=== PATIENT | female | born 1990 | race African-American/Black ===

== ENCOUNTER 2017-11-05 15:37 | Emergency (ER) | payer BC, OTHER ==
[2017-11-05 15:59] VITALS: RESP 18; TEMP 98.3
[2017-11-05 16:19] LABS: Basophils # (A) 0.1 k/uL (0-0.2); Basophils % (A) 0 %; Eosinophils # (A) 0.9 k/uL (0-0.7); Eosinophils % (A) 8 %; HGB 12.9 gm/dL (11.4-16.0); Lymphocytes # (A) 2.4 k/uL (1.0-4.8); Lymphocytes % (A) 21 %; MCHC 31.5 g/dL (31.0-37.0); MCV 85.6 fL (80.0-100.0); Mean Platelet Volume 6.7; Monocytes # (A) 0.6 k/uL (0-1.0); Monocytes % (A) 5 %; Neutrophils # (A) 7.6 k/uL (1.3-7.7); Neutrophils % (A) 65 %; Platelet Count 251 k/uL (150-450); RBC 4.78 m/uL (3.80-5.40); RDW 12.9 % (11.5-15.5); WBC 11.7 k/uL (3.8-10.6)
[2017-11-05 16:24] LABS: Appearance,Urine Clear (Clear); Bilirubin,Urine Negative (Negative); Blood,Urine Negative (Negative); Color,Urine Yellow; Glucose,Urine (UA) Negative (Negative); Ketones,Urine 1+ (Negative); Leukocyte Esterase,Urine Negative (Negative); Nitrite,Urine Negative (Negative); Protein,Urine Trace (Negative); Specific Gravity,Urine 1.023 (1.001-1.035); Urobilinogen,Urine <2.0 mg/dL (<2.0)
[2017-11-05 16:32] LABS: ALT 28 U/L (9-52); AST 19 U/L (14-36); Albumin 4.5 g/dL (3.5-5.0); Alkaline Phosphatase 58 U/L (38-126); Amylase 90 U/L (30-110); Anion Gap 13 mmol/L; Blood Urea Nitrogen 13 mg/dL (7-17); Calcium 10.3 mg/dL (8.4-10.2); Carbon Dioxide 23 mmol/L (22-30); Chloride 104 mmol/L (98-107); Glucose 93 mg/dL (74-99); Lipase 197 U/L (23-300); Potassium 3.8 mmol/L (3.5-5.1); Sodium 140 mmol/L (137-145); Total Bilirubin 0.4 mg/dL (0.2-1.3); Total Protein 7.8 g/dL (6.3-8.2)
--- NOTE | 2017-11-05 16:51 | ED ---
General Adult HPI - General Chief complaint: Abdominal Pain Stated complaint: Abd pain Time Seen by Provider: 11/05/17 16:41 Source: patient, RN notes reviewed Mode of arrival: ambulatory Limitations: no limitations - History of Present Illness Initial comments: 27 yo female presents to the ER with cc of pelvic pain and cramping and . She states she is about 5-6 weeks . Last menstrual cycle was September 21. She states she's been having some lower cramping in the abdomen. No nausea no fever no chills. She is a . She states that she has not had any fever chills. No changes in urination. She was concerned due to her continued cramping so she thought that she should be seen. She denies any vaginal bleeding. She states she has discharge but it is much like her typical discharged with no changes to that. Patient denies any recent fever, chills, shortness of breath, chest pain, back pain, nausea vomiting, numbness or tingling, dysuria or hematuria, constipation or diarrhea, headaches or visual changes, or any other current symptoms. - Related Data Home Medications Medication Instructions Recorded Confirmed Pnv No.95/Ferrous Fum/Folic AC 1 tab PO DAILY 11/05/17 11/05/17 [ Multivitamin Tablet] Allergies Allergy/AdvReac Type Severity Reaction Status Date / Time No Known Allergies Allergy Verified 11/05/17 16:30 Review of Systems ROS Statement: Those systems with pertinent positive or pertinent negative responses have been documented in the HPI. ROS Other: All systems not noted in ROS Statement are negative. Past Medical History Past Medical History: No Reported History History of Any Multi-Drug Resistant Organisms: None Reported Past Surgical History: Orthopedic Surgery Additional Past Surgical History / Comment(s): D&C Past Psychological History: Anxiety, Bipolar, Depression Smoking Status: Former smoker Past Alcohol Use History: None Reported Past Drug Use History: None Reported General Exam - General Exam Comments Initial Comments: General: The patient is awake and alert, in no distress, and does not appear acutely ill. Eye: Pupils are equal, round and reactive to light, extra-ocular movements are intact; there is normal conjunctiva bilaterally. No signs of icterus. Ears, nose, mouth and throat: There are moist mucous membranes. Neck: The neck is supple, there is no tenderness. Cardiovascular: There is a regular rate and rhythm. No murmur, rub or gallop is appreciated. Respiratory: Lungs are clear to auscultation, respirations are non-labored, breath sounds are equal. No wheezes, stridor, rales, or rhonchi. Gastrointestinal: Soft, non-distended, non-tender abdomen without masses or organomegaly noted. There is no rebound or guarding present. No CVA tenderness. Bowel sounds are unremarkable. Back: There is no tenderness to palpation in the midline. There is no obvious deformity. No rashes noted. Musculoskeletal: Normal ROM, no tenderness, There is no pedal edema. There is no calf tenderness or swelling. Sensation intact. Pulses equal bilaterally 2+. Neurological: CN II-XII intact, There are no obvious motor or sensory deficits. Coordination appears grossly intact. Speech is normal. Skin: Skin is warm and dry and no rashes or lesions are noted. Psychiatric: Cooperative, appropriate mood & affect, normal judgment. Limitations: no limitations Course Vital Signs 11/05/17 15:57 Temperature 98.3 F Pulse Rate 74 Respiratory 18 Rate Blood Pressure 128/78 O2 Sat by Pulse 100 Oximetry Medical Decision Making - Medical Decision Making 27-year-old female presents to the emergency department with a chief complaint of pelvic cramping and . This time ultrasound was reviewed that does show a single IUP. This and the heart rate is low. We discussed this could be early . We did discuss follow-up with the family care doctor. We did discuss also follow-up with [facility]. We discussed return parameters all questions. Patient stated he understood and he is in agreement this plan. All questions have been answered. He will be discharged home. - Lab Data Result diagrams: 11/05/17 16:05 11/05/17 16:05 Lab Results 11/05/17 11/05/17 11/05/17 Range/Units 16:05 16:05 16:05 WBC 11.7 H (3.8-10.6) k/uL RBC 4.78 (3.80-5.40) m/uL Hgb 12.9 (11.4-16.0) gm/dL Hct 41.0 (34.0-46.0) % MCV 85.6 (80.0-100.0) fL MCH 27.0 (25.0-35.0) pg MCHC 31.5 (31.0-37.0) g/dL RDW 12.9 (11.5-15.5) % Plt Count 251 (150-450) k/uL Neutrophils % 65 % Lymphocytes % 21 % Monocytes % 5 % Eosinophils % 8 % Basophils % 0 % Neutrophils # 7.6 (1.3-7.7) k/uL Lymphocytes # 2.4 (1.0-4.8) k/uL Monocytes # 0.6 (0-1.0) k/uL Eosinophils # 0.9 H (0-0.7) k/uL Basophils # 0.1 (0-0.2) k/uL Sodium 140 (137-145) mmol/L Potassium 3.8 (3.5-5.1) mmol/L Chloride 104 (98-107) mmol/L Carbon Dioxide 23 (22-30) mmol/L Anion Gap 13 mmol/L BUN 13 (7-17) mg/dL Creatinine 0.70 (0.52-1.04) mg/dL Est GFR (MDRD) Af Amer >60 (>60 ml/min/1.73 sqM) Est GFR (MDRD) Non-Af >60 (>60 ml/min/1.73 sqM) Glucose 93 (74-99) mg/dL Calcium 10.3 H (8.4-10.2) mg/dL Total Bilirubin 0.4 (0.2-1.3) mg/dL AST 19 (14-36) U/L ALT 28 (9-52) U/L Alkaline Phosphatase 58 (38-126) U/L Total Protein 7.8 (6.3-8.2) g/dL Albumin 4.5 (3.5-5.0) g/dL Amylase 90 (30-110) U/L Lipase 197 (23-300) U/L HCG, Quant 19624.2 mIU/mL Urine Color Yellow Urine Appearance Clear (Clear) Urine pH 6.0 (5.0-8.0) Ur Specific [place] 1.023 (1.001-1.035) Urine Protein Trace H (Negative) Urine Glucose (UA) Negative (Negative) Urine Ketones 1+ H (Negative) Urine Blood Negative (Negative) Urine Nitrite Negative (Negative) Urine Bilirubin Negative (Negative) Urine Urobilinogen <2.0 (<2.0) mg/dL Ur Leukocyte Esterase Negative (Negative) - Radiology Data Radiology results: report reviewed, image reviewed Disposition Clinical Impression: Pelvic pain affecting Disposition: HOME SELF-CARE Condition: Stable Instructions: Abdominal Pain in (ED) Additional Instructions: Please use medication as discussed. Please follow up with family doctor if symptoms have not improved over the next two days. Please return to the emergency room if your symptoms increase or worsen or for any other concerns. Referrals: Korey Brown MD [Primary Care Provider] - 1-2 days Bryan Oropeza MD [STAFF PHYSICIAN] - 1-2 days Time of Disposition: 17:43
[2017-11-05 17:17] LABS: HCG,Quantitative Serum 16240.2 mIU/mL
--- NOTE | 2017-11-05 17:39 | US ---
EXAMINATION TYPE: US OB <= 14 wk fetus DATE OF EXAM: 11/05/2017 COMPARISON: NONE CLINICAL HISTORY: Pain. Pt states cramping, denies bleeding EXAM PERFORMED: Transabdominal (TA) EXAM MEASUREMENTS: GESTATIONAL AGE / DATING Physician Established: Not yet established Dates by LMP: (6 weeks/3 days) EDC: 06/28/2018 Dates by First Scan: No prior Dates by Current Scan for: (6 weeks/0 days) EDC: 07/01/2018 MATERNAL ANATOMY Uterus: 8.6 x 4.6 x 5.6 Right Ovary: 3.8 x 3.8 x 3.5 cm Left Ovary: 3.3 x 3.0 x 2.6 cm Post CDS / Adnexa: wnl Presence of free fluid: No Presence of corpus luteal cyst: Right Ovary= 2.4 x 2.4 x 2.1 cm Presence of subchorionic bleed: No GESTATION / SURVEY CRL: 0.3 cm (6 weeks/0 days) MSD: wnl Yolk Sac (normal less than 6mm): 3mm Heart Rate: 92 bpm Rhythm: Slow rate, however this could be seen at very early gestation IUP: Viable IUP Date of LMP: 09/21/2017 IMPRESSION: SINGLE, VIABLE IUP WITH RELATIVELY LOW HEART RATE AT THIS TIME.
[2017-11-05 18:08] VITALS: BP 151/93; PULSE 77
== END 2017-11-05 18:07 | disposition home or self-care (01) ==
LOC: EC 15:37
DX: O26.891 Other specified pregnancy related conditions, first trimester (principal); R10.2 Pelvic and perineal pain; Z87.891 Personal history of nicotine dependence; Z79.899 Other long term (current) drug therapy; Z3A.01 Less than 8 weeks gestation of pregnancy
CPT/HCPCS: 36415; 76801; 80053; 81003; 82150; 83690; 84702; 85025; 99284

== ENCOUNTER 2018-04-19 17:38 | Outpatient (CLI) | payer BC ==
[2018-04-19 18:13] VITALS: BP 132/79; PULSE 91; RESP 16; TEMP 97.6
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
== END 2018-04-19 19:50 | disposition home or self-care (01) ==
LOC: FBPOP 17:38
PROVIDERS: ATTEND Obstetrics & Gynecology
DX: O9A.213 Injury, poisoning and certain other consequences of external causes complicating pregnancy, third trimester (principal); S39.81XA Other specified injuries of abdomen, initial encounter; Z3A.30 30 weeks gestation of pregnancy
CPT/HCPCS: 59025; 99213

== ENCOUNTER 2018-05-17 14:14 | Emergency (ER) | payer BC, OTHER ==
[2018-05-17] MEDS ORDERED: SODIUM CHLORIDE 0.9% 1,000 ML IV STA (14:47)
[2018-05-17 15:08] LABS: Basophils % (A) 0 %; Eosinophils # (A) 0.5 k/uL (0-0.7); Eosinophils % (A) 4 %; HGB 11.9 gm/dL (11.4-16.0); Lymphocytes # (A) 1.8 k/uL (1.0-4.8); Lymphocytes % (A) 13 %; MCH 26.6 pg (25.0-35.0); MCHC 32.3 g/dL (31.0-37.0); MCV 82.5 fL (80.0-100.0); Mean Platelet Volume 7.5; Monocytes # (A) 0.6 k/uL (0-1.0); Monocytes % (A) 4 %; Neutrophils # (A) 10.6 k/uL (1.3-7.7); Neutrophils % (A) 77 %; Platelet Count 228 k/uL (150-450); RBC 4.48 m/uL (3.80-5.40); RDW 13.8 % (11.5-15.5); WBC 13.7 k/uL (3.8-10.6)
--- NOTE | 2018-05-17 15:17 | ED ---
General Adult HPI - General Chief complaint: Nausea/Vomiting/Diarrhea Stated complaint: vomiting Time Seen by Provider: 05/17/18 14:41 Source: patient, RN notes reviewed Mode of arrival: ambulatory Limitations: no limitations - History of Present Illness Initial comments: Patient's 28-year-old female presented to the emergency room today with chief complaint of nausea vomiting that started this morning. Patient states that she 's approximately 34 weeks by a stop.. Patient states that last episode of vomiting was at 11 AM approximate 4 hours ago. Patient states that she did doctor or OB was advised coming here to the emergency room. Patient denies any vaginal bleeding or discharge. Denies any specific abdominal pain. Does admit that she had some cramping with the vomiting earlier. Patient denies any recent fever, chills, shortness of breath, chest pain, back pain, numbness or tingling, headaches or visual changes, or any other complaints. - Related Data Home Medications Medication Instructions Recorded Confirmed Pnv No.95/Ferrous Fum/Folic AC 1 tab PO DAILY 11/05/17 05/17/18 [ Multivitamin Tablet] Cholecalciferol [Vitamin D3] 1,000 unit PO DAILY 05/17/18 05/17/18 Omeprazole 20 mg PO DAILY 05/17/18 05/17/18 Allergies Allergy/AdvReac Type Severity Reaction Status Date / Time No Known Allergies Allergy Verified 05/17/18 14:51 Review of Systems ROS Statement: Those systems with pertinent positive or pertinent negative responses have been documented in the HPI. ROS Other: All systems not noted in ROS Statement are negative. Past Medical History Past Medical History: No Reported History History of Any Multi-Drug Resistant Organisms: None Reported Past Surgical History: Orthopedic Surgery Additional Past Surgical History / Comment(s): D&C Past Psychological History: Anxiety, Bipolar, Depression Smoking Status: Never smoker Past Alcohol Use History: None Reported Past Drug Use History: Marijuana General Exam - General Exam Comments Initial Comments: General: The patient is awake and alert, in no distress, and does not appear acutely ill. Eye: Pupils are equal, round and reactive to light. Extra-ocular movements are intact. No nystagmus. There is normal conjunctiva bilaterally. No signs of icterus. Ears, nose, mouth and throat: There are moist mucous membranes and no oral lesions. Neck: The neck is supple, there is no tenderness or JVD. Cardiovascular: There is a regular rate and rhythm. No murmur, rub or gallop is appreciated. Respiratory: Lungs are clear to auscultation, respirations are non-labored, breath sounds are equal. No wheezes, stridor, rales, or rhonchi. Gastrointestinal: Soft, non-distended, non-tender abdomen without masses or organomegaly noted. There is no rebound or guarding present. No CVA tenderness. Musculoskeletal: Normal ROM, no tenderness. Sensation intact. Strength 5/5. Pulses equal bilaterally 2+. Neurological: A&O x 3. CN II-XII intact, There are no obvious motor or sensory deficits. Coordination appears grossly intact. Speech is normal. Skin: Skin is warm and dry and no rashes or lesions are noted. Psychiatric: Cooperative, appropriate mood & affect, normal judgment. Limitations: no limitations Course Vital Signs 05/17/18 05/17/18 14:19 16:10 Temperature 98.1 F Pulse Rate 85 84 Respiratory 20 18 Rate Blood Pressure 129/95 132/72 O2 Sat by Pulse 100 100 Oximetry Medical Decision Making - Medical Decision Making Case discussed in detail with attending physician Dr. Wilkinson. Patient reexamined at this time shows no signs of distress resting comfortably. Patient will be discharged and sent to mostly be for further evaluation. Patient feeling well at this time. - Lab Data Result diagrams: 05/17/18 14:58 05/17/18 14:58 Lab Results 05/17/18 05/17/18 05/17/18 Range/Units 14:58 14:58 14:58 WBC 13.7 H (3.8-10.6) k/uL RBC 4.48 (3.80-5.40) m/uL Hgb 11.9 (11.4-16.0) gm/dL Hct 37.0 (34.0-46.0) % MCV 82.5 (80.0-100.0) fL MCH 26.6 (25.0-35.0) pg MCHC 32.3 (31.0-37.0) g/dL RDW 13.8 (11.5-15.5) % Plt Count 228 (150-450) k/uL Neutrophils % 77 % Lymphocytes % 13 % Monocytes % 4 % Eosinophils % 4 % Basophils % 0 % Neutrophils # 10.6 H (1.3-7.7) k/uL Lymphocytes # 1.8 (1.0-4.8) k/uL Monocytes # 0.6 (0-1.0) k/uL Eosinophils # 0.5 (0-0.7) k/uL Basophils # 0.0 (0-0.2) k/uL Sodium 136 L (137-145) mmol/L Potassium 4.2 (3.5-5.1) mmol/L Chloride 109 H (98-107) mmol/L Carbon Dioxide 18 L (22-30) mmol/L Anion Gap 9 mmol/L BUN 8 (7-17) mg/dL Creatinine 0.52 (0.52-1.04) mg/dL Est GFR (CKD-EPI)AfAm >90 (>60 ml/min/1.73 sqM) Est GFR (CKD-EPI)NonAf >90 (>60 ml/min/1.73 sqM) Glucose 79 (74-99) mg/dL Calcium 9.8 (8.4-10.2) mg/dL Total Bilirubin 0.5 (0.2-1.3) mg/dL AST 21 (14-36) U/L ALT 27 (9-52) U/L Alkaline Phosphatase 139 H (38-126) U/L Total Protein 6.7 (6.3-8.2) g/dL Albumin 3.6 (3.5-5.0) g/dL Urine Color Yellow Urine Appearance Clear (Clear) Urine pH 6.5 (5.0-8.0) Ur Specific [place] 1.023 (1.001-1.035) Urine Protein 1+ H (Negative) Urine Glucose (UA) Negative (Negative) Urine Ketones 4+ H (Negative) Urine Blood Negative (Negative) Urine Nitrite Negative (Negative) Urine Bilirubin Negative (Negative) Urine Urobilinogen <2.0 (<2.0) mg/dL Ur Leukocyte Esterase Negative (Negative) Urine WBC 1 (0-5) /hpf Ur Squamous Epith Cells 2 (0-4) /hpf Hyaline Casts 1 (0-2) /lpf Urine Mucus Moderate H (None) /hpf Disposition Clinical Impression: Nausea/vomiting in Disposition: HOME SELF-CARE Condition: Good Instructions: Acute Nausea and Vomiting (ED) Additional Instructions: Please follow-up with [facility] in the next 1-2 days. Please return to the emergency room for any other concerns. Is patient prescribed a controlled substance at d/c from ED?: No Referrals: Korey Brown MD [Primary Care Provider] - 1-2 days Estela Wang DO [Doctor of Osteopathic Medicine] - 1-2 days Time of Disposition: 16:44
[2018-05-17 15:19] LABS: ALT 27 U/L (9-52); AST 21 U/L (14-36); Albumin 3.6 g/dL (3.5-5.0); Alkaline Phosphatase 139 U/L (38-126); Anion Gap 9 mmol/L; Blood Urea Nitrogen 8 mg/dL (7-17); Calcium 9.8 mg/dL (8.4-10.2); Carbon Dioxide 18 mmol/L (22-30); Chloride 109 mmol/L (98-107); Glucose 79 mg/dL (74-99); Potassium 4.2 mmol/L (3.5-5.1); Sodium 136 mmol/L (137-145); Total Bilirubin 0.5 mg/dL (0.2-1.3); Total Protein 6.7 g/dL (6.3-8.2)
[2018-05-17 15:21] LABS: Appearance,Urine Clear (Clear); Bilirubin,Urine Negative (Negative); Blood,Urine Negative (Negative); Color,Urine Yellow; Glucose,Urine (UA) Negative (Negative); Hyaline Casts,Urine 1 /lpf (0-2); Ketones,Urine 4+ (Negative); Leukocyte Esterase,Urine Negative (Negative); Mucus,Urine Moderate /hpf; Nitrite,Urine Negative (Negative); PH, Urine 6.5 (5.0-8.0); Protein,Urine 1+ (Negative); Specific Gravity,Urine 1.023 (1.001-1.035); Squamous Epithelial Cell,Urine 2 /hpf (0-4); Urobilinogen,Urine <2.0 mg/dL (<2.0)
[2018-05-17] MEDS ORDERED: METOCLOPRAMIDE 5 MG/ML 2 ML VIAL IVP STA (15:56)
[2018-05-17] MEDS ORDERED: SODIUM CHLORIDE 0.9% 500 ML IV STA (15:57)
[2018-05-17 16:13] VITALS: PULSE 84; RESP 18
[2018-05-17 17:09] VITALS: BP 117/67; TEMP 98
== END 2018-05-17 17:09 | disposition home or self-care (01) ==
LOC: EC 14:14
DX: O21.2 Late vomiting of pregnancy (principal); Z3A.34 34 weeks gestation of pregnancy; Z79.899 Other long term (current) drug therapy
CPT/HCPCS: 99284; 96374; 96361; 36415; 80053; 85025; 81001; J2765

== ENCOUNTER 2018-06-28 08:53 | Inpatient (IN) | payer BC, OTHER ==
[2018-06-29] MEDS ORDERED: CARBOPROST TROMETHAMINE 250 MCG/ML 1 ML AMP IM PRN (06:26)
[2018-06-29] MEDS ORDERED: AMPICILLIN 2,000 MG in SODIUM CHLORIDE 0.9% 100 ML IVPB STA (06:26)
[2018-06-29] MEDS ORDERED: METHYLERGONOVINE 0.2 MG/ML 1 ML AMP IM PRN (06:26)
[2018-06-29] MEDS ORDERED: OXYTOCIN 10 UNIT/ML 1 ML VIAL IM PRN (06:26)
[2018-06-29] MEDS ORDERED: LIDOCAINE 0.5% (PF) 5 MG/ML (50 ML SDV) SQ PRN (06:26)
[2018-06-29] MEDS ORDERED: TERBUTALINE 1 MG/ML VIAL SQ PRN (06:26)
[2018-06-29] MEDS ORDERED: OXYTOCIN 20 UNITS/1000 ML NS 1,000 ML IV SCH ×2 (06:30→20:15)
[2018-06-29] MEDS: LACTATED RINGERS 1,000 ML IV SCH ×3 (06:39→23:59)
[2018-06-29 06:40] LABS: Basophils % (A) 0 %; Eosinophils # (A) 0.6 k/uL (0-0.7); Eosinophils % (A) 6 %; HCT 33.5 % (34.0-46.0); HGB 10.8 gm/dL (11.4-16.0); Hypochromasia Slight; Lymphocytes # (A) 1.9 k/uL (1.0-4.8); Lymphocytes % (A) 20 %; MCH 25.9 pg (25.0-35.0); MCHC 32.2 g/dL (31.0-37.0); MCV 80.5 fL (80.0-100.0); Mean Platelet Volume 8.3; Monocytes # (A) 0.6 k/uL (0-1.0); Monocytes % (A) 7 %; Neutrophils # (A) 6.4 k/uL (1.3-7.7); Neutrophils % (A) 65 %; Platelet Count 238 k/uL (150-450); RBC 4.15 m/uL (3.80-5.40); RDW 14.9 % (11.5-15.5); WBC 9.9 k/uL (3.8-10.6)
[2018-06-29] MEDS ORDERED: BUTORPHANOL 1 MG/ML 1 ML VIAL IV PRN (09:09)
[2018-06-29 09:46] VITALS: BMI 34.9
[2018-06-29] MEDS ORDERED: LABETALOL 5 MG/ML VIAL MDV IVP STA (09:56)
[2018-06-29 10:40] LABS: ALT 22 U/L (9-52); AST 23 U/L (14-36); Blood Urea Nitrogen 9 mg/dL (7-17); LDH 482 U/L (313-618); Uric Acid 4.1 mg/dL (3.7-7.4)
[2018-06-29] MEDS ORDERED: fentaNYL (PF) 50 MCG/ML 5 ML AMP ONE (10:55)
[2018-06-29] MEDS ORDERED: SODIUM CHLORIDE 0.9% 100 ML BAG ONE (10:55)
[2018-06-29] MEDS ORDERED: ROPIVACAINE 5MG/ML 20ML VIAL ONE (10:55)
[2018-06-29] MEDS: AMPICILLIN 1,000 MG in SODIUM CHLORIDE 0.9% 50 ML IVPB SCH ×3 (11:56→23:53)
[2018-06-29] MEDS ORDERED: CITRIC ACID-SODIUM CITRATE 15 ML CUP PO ONE (17:57)
[2018-06-29] MEDS ORDERED: ceFAZolin IN SWFI 2 GM/20 ML SYRINGE IVP ONE (17:57)
[2018-06-29] MEDS ORDERED: ONDANSETRON 4 MG/2 ML VIAL IM STA (18:37)
[2018-06-29] MEDS ORDERED: ONDANSETRON 4 MG/2 ML VIAL IVP STA (18:57)
[2018-06-29] MEDS ORDERED: PHENYLEPHRINE-0.9% NACL SYG 1 MG/10 ML SYRINGE ONE (19:23)
[2018-06-29] MEDS ORDERED: ONDANSETRON 4 MG/2 ML VIAL ONE (19:23)
[2018-06-29] MEDS ORDERED: OXYTOCIN 10 UNIT/ML 1 ML VIAL ONE (19:23)
[2018-06-29] MEDS ORDERED: DEXAMETHASONE SOD PHOS (MDV) 100 MG/10 ML VIAL ONE (19:23)
--- NOTE | 2018-06-29 20:09 | P.HPOB ---
History of Present Illness H&P Date: 06/29/18 Chief Complaint: IUP @ 40 1/7 weeks GBS pos This is a 28-year-old 1 para 0 at 40 and one sevenths weeks that presents for induction of labor. Patient has had an uncomplicated thus far and has been receiving routine care with myself. She notes good movement, an occasional contraction no vaginal bleeding or loss of fluid. On blood work she had a blood type Bpos, Rubella immune, RPR NR, HepBsag neg, GBS pos. She does admit to THC use and had a positive drug screen. Review of Systems Constitutional: Reports fatigue, Denies chills, Denies fever Ears, nose, mouth and throat: Denies headache Cardiovascular: Reports leg edema Respiratory: Denies cough, Denies dyspnea Gastrointestinal: Denies constipation, Denies diarrhea, Denies nausea, Denies vomiting Genitourinary: Reports Past Medical History Past Medical History: No Reported History History of Any Multi-Drug Resistant Organisms: None Reported Past Surgical History: Orthopedic Surgery Additional Past Surgical History / Comment(s): D&C Past Anesthesia/Blood Transfusion Reactions: No Reported Reaction Past Psychological History: Anxiety, Bipolar, Depression Smoking Status: Never smoker Past Alcohol Use History: None Reported Past Drug Use History: Marijuana - Past Family History Father Family Medical History: No Reported History Medications and Allergies Home Medications Medication Instructions Recorded Confirmed Type Pnv No.95/Ferrous Fum/Folic AC 1 tab PO DAILY 11/05/17 06/29/18 History [ Multivitamin Tablet] Cholecalciferol [Vitamin D3] 1,000 unit PO DAILY 05/17/18 06/29/18 History Allergies Allergy/AdvReac Type Severity Reaction Status Date / Time No Known Allergies Allergy Verified 05/17/18 14:51 Exam Osteopathic Statement: *. No significant issues noted on an osteopathic structural exam other than those noted in the History and Physical/Consult. Vital Signs Temp Pulse Resp BP 06/29/18 06:23 97.3 F L 96 16 137/93 Intake and Output 06/29/18 06/29/18 06/29/18 06:59 14:59 22:59 Intake Total 250 Balance 250 Intake: Oral 250 Other: Weight 95.254 kg - OBG Physical Exam Abdomen: Gravid Cervix: 4/80/-2 amniotomy performed and clear fluid was obtained. Uterus: enlarged (Appropriate for gestational age) Anus/Rectum: normal perianal skin Results Result Diagrams: 06/29/18 06:30 06/29/18 09:35 Abnormal Lab Results - Last 24 Hours (Table) 06/29/18 Range/Units 06:30 Hgb 10.8 L (11.4-16.0) gm/dL Hct 33.5 L (34.0-46.0) % Assessment and Plan (1) Term Current Visit: Yes Status: Acute Code(s): Z34.80 - ENCOUNTER FOR SUPRVSN OF NORMAL , UNSP TRIMESTER SNOMED Code(s): 99055785 (2) Positive GBS test Current Visit: Yes Status: Acute Code(s): B95.1 - STREPTOCOCCUS, GROUP B, CAUSING DISEASES [facility] Code(s): 8656243220311 Plan: We'll admit for induction of labor with Pitocin. Epidural as requested per patient for analgesia. Anticipate spontaneous vaginal delivery
[2018-06-29] MEDS ORDERED: ACETAMINOPHEN TAB 325 MG TAB PO PRN (20:11)
[2018-06-29] MEDS ORDERED: diphenhydrAMINE 50 MG/ML 1 ML VIAL IVP PRN ×2 (20:11)
[2018-06-29] MEDS ORDERED: LANOLIN CREAM 5 GM TUBE TOPICAL PRN (20:11)
[2018-06-29] MEDS ORDERED: diphenhydrAMINE 50 MG CAP PO PRN (20:11)
[2018-06-29] MEDS ORDERED: METOCLOPRAMIDE 5 MG/ML 2 ML VIAL IVP PRN (20:11)
[2018-06-29] MEDS ORDERED: NALOXONE 0.4 MG/ML 1 ML VIAL IV PRN ×2 (20:11→22:13)
[2018-06-29] MEDS ORDERED: diphenhydrAMINE 25 MG CAP PO PRN (20:11)
[2018-06-29] MEDS ORDERED: ZOLPIDEM 5 MG TAB PO PRN (20:11)
[2018-06-29] MEDS ORDERED: ACETAMINOPHEN IV (For NPO) 1,000 MG in EMPTY BAG 1 BAG IVPB ONE (20:11)
[2018-06-29] MEDS ORDERED: ONDANSETRON 4 MG/2 ML VIAL IVP PRN (20:11)
--- NOTE | 2018-06-29 20:11 | P.OP ---
Date of Procedure: 06/29/18 Preoperative Diagnosis: IUP at 40 and one sevenths weeks, arrest of first stage of labor Postoperative Diagnosis: Same Procedure(s) Performed: Primary low transverse section Anesthesia: epidural Surgeon: Estela Wang Inspector Hairspring Truing #1: Rosemary Mckeon Estimated Blood Loss (ml): 200 IV fluids (ml): 1,000 Urine output (ml): 200 Pathology: other (Placenta) Condition: stable Disposition: PACU Indications for Procedure: Arrest of first stage of labor patient was admitted at 4 cm and many hours later was 6 cm with extensive Formation Operative Findings: Normal uterus tubes and ovaries were appreciated, infant in occiput transverse position. Description of Procedure: The patient was prepped and draped in the usual fashion after epidural anesthesia was found be adequate. A Pfannenstiel incision was made and extended of the abdominal cavity without difficulty. The bladder peritoneum was elevated and incised and reflected distally. A 2 cm incision was made in the transverse plane of the lower uterine segment to enter the uterus at which time clear fluid was noted. The incision was extended in both directions using the bandage scissors. The head was encountered within the field and delivered up and through the incision where the nose and mouth were thoroughly suctioned. Remainder of the was delivered onto the surgical field where the cord was doubly clamped, cut, and the infant was passed for resuscitative measures with weight 8-1and Apgars 8-9. A segment of cord was then doubly clamped, cut, and set aside should cord gases become necessary. The placenta was delivered manually, intact, and was grossly normal with a grossly normal three-vessel cord. The uterus was exteriorized and the interior cavity of the uterus swept of any remaining placental and membranous fragments with a laparotomy sponge. The margins of the incision were grasped with Agosto clamps and the incision closed in 2 layers. First layer was a running locking layer of 0vicryl from margin to margin followed by a second layer of imbricating 0 vicryl from margin to margin. Any small points of bleeding were then made hemostatic with the Bovie. Once hemostasis was achieved, the posterior cul-de-sac was suctioned with a guard and the uterine and ovarian findings are as noted above. The uterus was replaced within the abdominal cavity and the gutters swept of any remaining blood fluid or clot. The incision was again reexamined and hemostasis was noted to be excellent. Any small point of bleeding were made hemostatic with the Bovie. Once hemostasis was achieved the parietal peritoneum was loosely reapproximated. The layer of muscles were examined and made hemostatic with the Bovie. Attention was then turned to the fascia which was closed with 2 running stitches of 0 Vicryl proceeding from the lateral margins to the midpoint. The subcutaneous tissues were irrigated, made hemostatic with the Bovie. The skin was reapproximated with4-0 vicryl. Estimated blood loss for the case was approximately 200 mL. All sponge instrument and needle counts are correct. There were no complications. The patient tolerated the procedure well and proceeded to the recovery room in stable condition. Both mother and are resting comfortably in recovery.
[2018-06-29] MEDS ORDERED: IBUPROFEN IV 800 MG in SODIUM CHLORIDE 0.9% 250 ML IV ONE (20:13)
[2018-06-29] MEDS ORDERED: LABETALOL 200 MG TAB PO STA (22:09)
[2018-06-29] MEDS: HYDROmorphone PCA 5 MG/25 ML SYRINGE IV PRN (23:34)
[2018-06-30] MEDS: LACTATED RINGERS 1,000 ML IV SCH (05:15)
[2018-06-30 07:36] LABS: Basophils % (A) 0 %; Eosinophils % (A) 0 %; HCT 32.9 % (34.0-46.0); HGB 10.5 gm/dL (11.4-16.0); Hypochromasia Slight; Lymphocytes # (A) 0.8 k/uL (1.0-4.8); Lymphocytes % (A) 4 %; MCH 25.9 pg (25.0-35.0); MCV 80.9 fL (80.0-100.0); Mean Platelet Volume 8.7; Monocytes # (A) 0.8 k/uL (0-1.0); Monocytes % (A) 4 %; Neutrophils % (A) 91 %; Platelet Count 222 k/uL (150-450); RBC 4.07 m/uL (3.80-5.40); RDW 14.8 % (11.5-15.5); WBC 18.7 k/uL (3.8-10.6)
[2018-06-30] MEDS: HYDROmorphone PCA 5 MG/25 ML SYRINGE IV PRN (08:08)
--- NOTE | 2018-06-30 08:11 | P.PNOBGPC ---
Subjective - Subjective Principal diagnosis: Postop day 1 Interval history: Pain well controlled with ASSISTANT PROGRAM MANAGER device. Nausea has resolved. His 12 hours postop , has not actively ambulated yet. Patient reports: Reports pain well controlled : doing well Objective - Vital Signs Latest vital signs: Vital Signs Temp Pulse Resp BP Pulse Ox 06/30/18 04:00 97.9 F 71 16 138/77 06/30/18 00:00 98.8 F 94 16 149/83 06/29/18 22:15 97.3 F L 86 16 145/99 06/29/18 21:45 94 16 170/87 06/29/18 21:15 90 16 152/84 98 06/29/18 21:00 98.2 F 95 16 147/78 100 06/29/18 20:45 92 16 141/70 98 06/29/18 20:30 98.4 F 100 14 113/58 98 06/29/18 20:15 98.8 F 99 16 112/52 Intake and Output 06/29/18 06/30/18 06/30/18 22:59 06:59 14:59 Intake Total 370 800 Output Total 400 1400 Balance -30 -600 Intake: IV 800 Lactated Ringers 1,000 ml 800 @ 125 mls/hr IV .Q8H HELEN Rx#:[id number] Intake, IV Titration 250 Amount Lactated Ringers 1,000 ml 250 @ 125 mls/hr IV .Q8H HELEN Rx#:[id number] Oral 120 Output: Urine 400 1400 Uretheral (Gleason) 400 Other: # Voids 1 - Exam Extremities: Present: edema. Absent: tenderness Abdomen: Present: normal appearance, tenderness Incision: Present: dry, intact, dressed Uterus: Present: normal, firm - Labs Labs: Abnormal Lab Results - Last 24 Hours (Table) 06/30/18 Range/Units 07:01 WBC 18.7 H (3.8-10.6) k/uL Hgb 10.5 L (11.4-16.0) gm/dL Hct 32.9 L (34.0-46.0) % Neutrophils # 17.0 H (1.3-7.7) k/uL Lymphocytes # 0.8 L (1.0-4.8) k/uL Assessment and Plan (1) Positive GBS test Current Visit: Yes Status: Acute Code(s): B95.1 - STREPTOCOCCUS, GROUP B, CAUSING DISEASES CLASSD ELSR SNOMED Code(s): 3401966481826 (2) Term Current Visit: Yes Status: Acute Code(s): Z34.80 - ENCOUNTER FOR SUPRVSN OF NORMAL , UNSP TRIMESTER SNOMED Code(s): 64829136 (3) S/P section Narrative/Plan: Postop day one half. Continue ASSISTANT PROGRAM MANAGER device throughout the day then transitioned to oral pain medications. Advance to general diet. Current Visit: Yes Status: Acute Code(s): Z98.891 - HISTORY OF UTERINE SCAR FROM PREVIOUS SURGERY SNOMED Code(s): 191028238 (4) Failure to progress in first stage of labor Current Visit: Yes Status: Acute Code(s): RNQ3529 - SNOMED Code(s): 169647129 (5) Hypertension complicating Narrative/Plan: Required labetalol 200 mg by mouth 1 last night. Most recent blood pressure 130s over 70s. We will continue to monitor, may need oral antihypertensives in the period Current Visit: Yes Status: Acute Code(s): O16.9 - UNSPECIFIED MATERNAL HYPERTENSION, UNSPECIFIED TRIMESTER SNOMED Code(s): 77448672972254
[2018-06-30] MEDS: HYDROcodone/APAP 7.5-325MG 1 EACH TAB PO PRN ×2 (13:27→20:39)
[2018-06-30] MEDS: SENNOSIDES-DOCUSATE SODIUM 1 EACH TAB PO SCH ×2 (13:28→20:39)
[2018-06-30] MEDS: IBUPROFEN 600 MG TAB PO PRN ×2 (16:42→23:24)
[2018-07-01] MEDS: HYDROcodone/APAP 5-325MG 1 EACH TAB PO PRN ×2 (02:27→08:32)
[2018-07-01] MEDS: IBUPROFEN 600 MG TAB PO PRN ×2 (05:30→11:28)
[2018-07-01] MEDS: SENNOSIDES-DOCUSATE SODIUM 1 EACH TAB PO SCH (08:32)
[2018-07-01 08:44] VITALS: BP 135/76; PULSE 88; RESP 18; TEMP 98
[2018-07-01] MEDS: LACTATED RINGERS 1,000 ML IV SCH (09:43)
--- NOTE | 2018-07-01 10:06 | P.DS ---
Providers Date of admission: 06/29/18 06:10 Expected date of discharge: 07/01/18 Attending physician: Estela Wang Primary care physician: Korey Brown - Discharge Diagnosis(es) (1) Positive GBS test Current Visit: Yes Status: Acute (2) Term Current Visit: Yes Status: Acute (3) S/P section Current Visit: Yes Status: Acute (4) Failure to progress in first stage of labor Current Visit: Yes Status: Acute (5) Hypertension complicating Current Visit: Yes Status: Acute Hospital Course: This is a 28-year-old 1 now para 1 woman here was admitted for postdates induction of labor. She had arrest of descent and dilatation and therefore underwent primary low transverse section. She did have some hypertension during her labor requiring IV antihypertensives. She had a liveborn male infant weighing 8 pounds there was in the occiput transverse position. Please see the operative report for details. Patient's post course was unremarkable. She did receive labetalol 200 mg by mouth 1 for a single elevated blood pressure. On her blood pressures then were within normal limits the duration of her stay. Her postoperative course was otherwise unremarkable and she was discharged home on postoperative day #2 with routine instructions for care and follow-up. Procedures: Primary low transverse section Patient Condition at Discharge: Good Plan - Discharge Summary New Discharge Prescriptions: New HYDROcodone/APAP 7.5-325MG [Crozier 7.5-325] 1 each PO Q6H PRN #20 tab PRN Reason: Severe Pain Ibuprofen [Motrin] 600 mg PO Q6HR PRN #30 tab PRN Reason: Mild Pain Or Fever >= 100.5 Sennosides-Docusate Sodium [Senokot-S] 2 each PO BID@0800,2000 tab No Action Pnv No.95/Ferrous Fum/Folic AC [ Multivitamin Tablet] 1 tab PO DAILY Cholecalciferol [Vitamin D3] 1,000 unit PO DAILY Discharge Medication List Pnv No.95/Ferrous Fum/Folic AC [ Multivitamin Tablet] 1 tab PO DAILY [History] Cholecalciferol [Vitamin D3] 1,000 unit PO DAILY 05/17/18 [History] HYDROcodone/APAP 7.5-325MG [Crozier 7.5-325] 1 each PO Q6H PRN #20 tab 07/01/18 [ Rx] Ibuprofen [Motrin] 600 mg PO Q6HR PRN #30 tab 07/01/18 [Rx] Sennosides-Docusate Sodium [Senokot-S] 2 each PO BID@0800,2000 tab 07/01/18 [Rx ] Follow up Appointment(s)/Referral(s): Estela Wang DO [Doctor of Osteopathic Medicine] - 1 Week Activity/Diet/Wound Care/Special Instructions: Follow-up in 2 weeks after surgery in the office. Call the office with any concerning signs or symptoms including fever greater than 101, severe abdominal pain, heavy vaginal bleeding, signs of wound infection, increased swelling or redness of the lower extremities, signs of depression. No driving for 2 weeks after surgery. No heavy lifting or vigorous activity until reevaluated in the office. No intercourse for 6 weeks after delivery. Discharge Disposition: HOME SELF-CARE
== END 2018-07-01 14:20 | disposition home or self-care (01) | DRG 788 ==
LOC: 4FBP 06-29 06:10
PROVIDERS: ADMIT Obstetrics & Gynecology Obstetrics; ATTEND Obstetrics & Gynecology Obstetrics
PROC: 10907ZC Drainage of Amniotic Fluid, Therapeutic from Products of Conception, Via Natural or Artificial Opening (ICD-10-PCS; 2018-06-29)
PROC: 3E033VJ Introduction of Other Hormone into Peripheral Vein, Percutaneous Approach (ICD-10-PCS; 2018-06-29)
PROC: 10D00Z1 Extraction of Products of Conception, Low, Open Approach (ICD-10-PCS; principal; 2018-06-29 19:37)
DX: O62.0 Primary inadequate contractions (principal); O99.824 Streptococcus B carrier state complicating childbirth; O16.4 Unspecified maternal hypertension, complicating childbirth; Z37.0 Single live birth; Z3A.40 40 weeks gestation of pregnancy; Z86.59 Personal history of other mental and behavioral disorders
CPT/HCPCS: 82565; 83615; 84450; 84460; 84520; 84550; 85025; 86850; 86900; 86901

== ENCOUNTER 2019-01-08 09:25 | Emergency (ER) | payer BC, OTHER ==
[2019-01-08 09:31] VITALS: RESP 16; TEMP 98.2
[2019-01-08] MEDS ORDERED: KETOROLAC 30 MG/ML 1 ML VIAL IM STA (10:12)
--- NOTE | 2019-01-08 10:33 | ED ---
Fall HPI - General Chief Complaint: Fall Stated Complaint: Knee pain Time Seen by Provider: 01/08/19 09:36 Source: patient, RN notes reviewed, old records reviewed Mode of arrival: wheelchair - History of Present Illness Initial Comments: Patient is a pleasant 28-year-old female presenting to the emergency department today for evaluation for right knee pain. Patient ports that she was on her riding lawnmower yesterday when she quickly jumped off to avoid hitting a child and was chasing after a ball. Patient states that she has had some previous knee injuries including a left knee meniscal tear and has had fluid on her right knee. Patient reports pain with range of motion of the right knee today. And swelling is noted as well. She states that she has normal sensation distally. - Related Data Home Medications Medication Instructions Recorded Confirmed Cholecalciferol [Vitamin D3] 1,000 unit PO DAILY 05/17/18 01/08/19 Folic Acid 0.8 mg PO DAILY 01/08/19 01/08/19 Previous Rx's Medication Instructions Recorded Ibuprofen [Motrin] 600 mg PO Q8HR PRN #20 tab 01/08/19 Allergies Allergy/AdvReac Type Severity Reaction Status Date / Time No Known Allergies Allergy Verified 01/08/19 10:07 Review of Systems ROS Statement: Those systems with pertinent positive or pertinent negative responses have been documented in the HPI. ROS Other: All systems not noted in ROS Statement are negative. Past Medical History Past Medical History: No Reported History History of Any Multi-Drug Resistant Organisms: None Reported Past Surgical History: Orthopedic Surgery Additional Past Surgical History / Comment(s): D&C Past Anesthesia/Blood Transfusion Reactions: No Reported Reaction Past Psychological History: Anxiety, Bipolar, Depression Smoking Status: Never smoker Past Alcohol Use History: None Reported Past Drug Use History: Marijuana - Past Family History Father Family Medical History: No Reported History General Exam - General Exam Comments Initial Comments: 28-year-old female. Alert and oriented 3. No significant distress. General appearance: alert, in no apparent distress Head exam: Present: atraumatic, normocephalic, normal inspection Eye exam: Present: normal appearance, PERRL, EOMI. Absent: scleral icterus, conjunctival injection, periorbital swelling ENT exam: Present: normal exam, mucous membranes moist Neck exam: Present: normal inspection. Absent: tenderness, meningismus, lymphadenopathy Respiratory exam: Present: normal lung sounds bilaterally. Absent: respiratory distress, wheezes, rales, rhonchi, stridor Cardiovascular Exam: Present: regular rate, normal rhythm, normal heart sounds. Absent: systolic murmur, diastolic murmur, rubs, gallop, clicks GI/Abdominal exam: Present: soft, normal bowel sounds. Absent: distended, tenderness, guarding, rebound, rigid Extremities exam: Present: normal inspection, full ROM, normal capillary refill. Absent: tenderness, pedal edema, joint swelling, calf tenderness Right Upper Leg exam: Present: normal inspection, full ROM Knee exam: Present: full ROM (Patient is pain with flexion greater than 90 of the knee.), swelling, crepitus (Episode of flexion.). Absent: normal inspection, abrasion, laceration Lower Leg exam: Present: normal inspection, full ROM Ankle exam: Present: normal inspection, full ROM Gait: observed and limited by pain Back exam: Present: normal inspection Neurological exam: Present: alert, oriented X3, CN II-XII intact Psychiatric exam: Present: normal affect, normal mood Skin exam: Present: warm, dry, intact, normal color. 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 She reports she fell on her knee. She has crepitus noted with flexion, and swelling noted to the knee. Patient has an x-ray completed of the right knee. This is negative for any acute process. She does have a fever. Given an Fortino wrap at this time. Discussed likely meniscal injury. We'll discharge the Patient with appropriate for orthopedics as well as RICE instructions. All questions answered return parameters were discussed. - Radiology Data Radiology results: report reviewed The x-ray is negative for any acute osseous lesion. Disposition Clinical Impression: Fall, Effusion, right knee Disposition: HOME SELF-CARE Condition: Good Instructions (If sedation given, give patient instructions): Knee Sprain (ED) Additional Instructions: Patient advised to follow-up with primary care doctor. Return to emergency depa rtment if any alarming signs or symptoms occur. Prescriptions: Ibuprofen [Motrin] 600 mg PO Q8HR PRN #20 tab PRN Reason: Pain Is patient prescribed a controlled substance at d/c from ED?: No Referrals: Cliff Valenzuela MD [Primary Care Provider] - 1-2 days Moreno Galvan DO [Doctor of Osteopathic Medicine] - 1-2 days Time of Disposition: 11:17
--- NOTE | 2019-01-08 10:37 | XR ---
EXAMINATION TYPE: XR knee complete RT , 3 VIEWS DATE OF EXAM ORDERED: 01/08/2019 HISTORY: Pain. COMPARISON: None. FINDINGS: No fracture, dislocation or knee joint effusion is identified. IMPRESSION: NO ACUTE OSSEOUS LESION.
[2019-01-08 11:31] VITALS: BP 143/88; PULSE 84
== END 2019-01-08 11:30 | disposition home or self-care (01) ==
LOC: EC 09:25
DX: M25.461 Effusion, right knee (principal); R50.9 Fever, unspecified; Z87.828 Personal history of other (healed) physical injury and trauma; V84.5XXA Driver of special agricultural vehicle injured in nontraffic accident, initial encounter; Y93.89 Activity, other specified; Y92.89 Other specified places as the place of occurrence of the external cause
CPT/HCPCS: 73562; 99284; 96372; J1885

== ENCOUNTER 2019-07-28 17:19 | Outpatient (CLI) | payer BC | END 2019-07-28 18:30 | disposition home or self-care (01) | LOC: FBPOP 17:19 | PROVIDERS: ATTEND Obstetrics & Gynecology Obstetrics | DX: O99.89 Other specified diseases and conditions complicating pregnancy, childbirth and the puerperium (principal); G89.4 Chronic pain syndrome; Z3A.32 32 weeks gestation of pregnancy | CPT/HCPCS: 59025; 99213 ==

== ENCOUNTER 2019-09-07 01:00 | Outpatient (CLI) | payer BC ==
[2019-09-07 02:51] VITALS: BP 132/82; PULSE 100; RESP 16; TEMP 97.6
--- NOTE | 2019-09-15 08:01 | P.MSEPDOC ---
Presenting Problems - Arrival Data Date of Arrival on Unit: 09/07/19 Time of Arrival on Unit: 01:00 Mode of Transport: Wheelchair - Complaint OB-Reason for Admission/Chief Complaint: Possible Onset of Labor Medical History - Information : 2 Para: 1 Term: 1 : 0 Abortions: Spontaneous or Elective: 0 Number of Living Children: 1 - Gestational Age Gestational Age by ASHLEY (wks/days): 37 Weeks and 4 Days Review of Systems - Review of Systems Constitutional: No problems Breast: No problems ENT: No problems Cardiovascular: No problems Respiratory: No problems Gastrointestinal: No problems Genitourinary: No problems Musculoskeletal: No problems Neurological: No problems Skin: No problems Vital Signs - Temperature Temperature: 97.6 F Temperature Source: Temporal Artery Scan - Pulse Right Brachial Pulse Rate: 100 Pulse Assessment Method: Automatic Cuff - Respirations Respiratory Rate: 16 Oxygen Delivery Method: Room Air O2 Sat by Pulse Oximetry: 98 - Blood Pressure Right Arm Blood Pressure: 132/82 Blood Pressure Mean: 98 Blood Pressure Source: Automatic Cuff Medical Screen Scoring (Pre) - Cervical Exam Dilation: 0 cm = 0 Membranes: Intact - Uterine Contractions Frequency: > 5 minutes apart = 1 Duration: N/A Intensity: N/A - Maternal Vital Signs Maternal Temperature: N/A Maternal Blood Pressure: N/A Signs of Preeclampsia: N/A Maternal Respirations: N/A - Maternal Trauma Maternal Trauma: N/A - Assessment - Baby A Baseline FHR: 120 Heart Rate - NICHD Category: Category I (Normal) = 0 NST: Reactive - Total Score - Baby A Total Score - Baby A: 1 - Total Score - Baby B Total Score - Baby B: 1 - Total Score - Baby C Total Score - Baby C: 1 - Level of Risk - Baby A Level of Risk - Baby A: Low (0-5) - Level of Risk - Baby B Level of Risk - Baby B: Low (0-5) - Level of Risk - Baby C Level of Risk - Baby C: Low (0-5) Physician Notification (Pre) - Physician Notified Physician Notified Date: 09/07/19 Physician Notified Time: 02:25 New Order Received: Yes - Notification Comment Comment: RN reported cervical exam of closed/thick/high that remained unchanged after. one hour. Patient had a high blood pressure of 155/83 upon arrival which subsequently. decreased during stay. Patient reported three contractions during observation. Dr. Gutierrez. states to discharge patient with instructions to increase oral fluids and nothing in. vagina until follow up visit with Dr. Wang. Patient updated on plan of care and is in. agreement. Disposition - Disposition OB Disposition: Physician follow up in office, Discharge to home Discharge Date: 09/07/19 Discharge Time: 02:50 I agree with the RN Medical Screening Exam: Yes Risk & Benefit of care provided described in d/c instruction: Yes Diagnosis: FALSE LABOR AT OR AFTER 37 COMPLETED WEEKS OF GESTATION
== END 2019-09-07 02:50 | disposition home or self-care (01) ==
LOC: FBPOP 01:00
PROVIDERS: ATTEND Obstetrics & Gynecology
DX: O47.1 False labor at or after 37 completed weeks of gestation (principal); Z3A.37 37 weeks gestation of pregnancy
CPT/HCPCS: 59025; 99213

== ENCOUNTER 2019-09-18 10:11 | Inpatient (IN) | payer BC ==
[2019-09-14 11:30] VITALS: BMI 37.5
[2019-09-18] MEDS ORDERED: CITRIC ACID-SODIUM CITRATE 15 ML CUP PO ONE (10:23)
--- NOTE | 2019-09-18 10:48 | P.HPOB ---
History of Present Illness H&P Date: 09/18/19 Chief Complaint: IUP at 39 and 1/sevenths weeks, h/o c/s x1, short IC This is a pleasant 29-year-old at 39 and one sevenths weeks that presents for elective repeat section. Patient has a history of a C- section 1 for arrest of labor and desires repeat. In addition patient desires tubal ligation time of the . Patient does have a short inner conceptual .. Patient notes good movement this morning she denies contractions or concerns. Patient has been receiving routine care with myself since the first trimester. care has been essentially uncomplicated throughout. On labs has a blood type of B+, rubella immune, RPR nonreactive, hepatitis B surface antigen negative, HIV negative, she did pass her one-hour Glucola with a result of 124. She received T On 07/24/19, group beta strep was positive on 08/28/19. Review of Systems Constitutional: Denies chills, Denies fatigue, Denies fever Ears, nose, mouth and throat: Denies headache Cardiovascular: Reports leg edema Respiratory: Denies dyspnea Gastrointestinal: Denies nausea, Denies vomiting Genitourinary: Reports Past Medical History Past Medical History: No Reported History Additional Past Medical History / Comment(s): states hypertension with delivery of 1st baby., -LMP November 2018. History of Any Multi-Drug Resistant Organisms: None Reported Past Surgical History: Section, Orthopedic Surgery Additional Past Surgical History / Comment(s): D&C, torn meniscus Past Anesthesia/Blood Transfusion Reactions: No Reported Reaction Additional Past Anesthesia/Blood Transfusion Reaction / Comment(s): states elevated bloodpressure with 1st baby Past Psychological History: Anxiety, Depression Smoking Status: Never smoker Past Alcohol Use History: None Reported Past Drug Use History: Marijuana Additional Drug Use History / Comment(s): No current marijuana - Past Family History Father Family Medical History: No Reported History Medications and Allergies Home Medications Medication Instructions Recorded Confirmed Type Iron 5 Mg 5 mg PO DAILY 09/14/19 09/18/19 History Pnv No.95/Ferrous Fum/Folic AC 1 each PO DAILY 09/14/19 09/18/19 History [ Multivitamin Tablet] Allergies Allergy/AdvReac Type Severity Reaction Status Date / Time No Known Allergies Allergy Verified 09/18/19 10:22 Exam Osteopathic Statement: *. No significant issues noted on an osteopathic structural exam other than those noted in the History and Physical/Consult. Vital Signs Temp Pulse Resp BP Pulse Ox 09/18/19 10:25 97.3 F L 110 H 18 136/95 98 Intake and Output 09/17/19 09/18/19 09/18/19 22:59 06:59 14:59 Other: Weight 102.512 kg Tardive physical exam is performed on this date and dietary supervisor a well-nourished well-developed female in no acute distress, breathing is noted to be nonlabored heart has a regular rate and rhythm her heart tones are noted to be category 1 and she is not estella. Assessment and Plan (1) H/O section Current Visit: Yes Status: Acute Code(s): Z98.891 - HISTORY OF UTERINE SCAR FROM PREVIOUS SURGERY SNOMED Code(s): 972727278 (2) Positive GBS test Current Visit: No Status: Acute Code(s): B95.1 - STREPTOCOCCUS, GROUP B, CAUSING DISEASES CLASSD ELSR SNOMED Code(s): 657711945 (3) Term Current Visit: No Status: Acute Code(s): Z34.80 - ENCOUNTER FOR SUPRVSN OF NORMAL , UNSP TRIMESTER SNOMED Code(s): 59776543 Plan: Patient is admitted to labor and delivery for planned repeat section with tubal ligation. is reviewed with the patient all questions are answered. Patient understands the failure rate of the tubal ligation of 2-3 per thousand if she misses a period she will present the office or the emergency department for confirmation of should this occur. Patient states all of her questions are answered and is ready to proceed to the OR.
[2019-09-18] MEDS ORDERED: LACTATED RINGERS 1,000 ML IV SCH (11:00)
[2019-09-18 11:05] LABS: Basophils % (A) 0 %; Eosinophils # (A) 0.6 k/uL (0-0.7); Eosinophils % (A) 5 %; HCT 32.4 % (34.0-46.0); HGB 10.2 gm/dL (11.4-16.0); Hypochromasia Slight; Lymphocytes # (A) 1.4 k/uL (1.0-4.8); Lymphocytes % (A) 12 %; MCH 24.1 pg (25.0-35.0); MCHC 31.6 g/dL (31.0-37.0); MCV 76.5 fL (80.0-100.0); Mean Platelet Volume 8.6; Microcytosis Slight; Monocytes # (A) 0.7 k/uL (0-1.0); Monocytes % (A) 6 %; Neutrophils # (A) 8.3 k/uL (1.3-7.7); Neutrophils % (A) 73 %; Platelet Count 239 k/uL (150-450); RBC 4.24 m/uL (3.80-5.40); RDW 15.1 % (11.5-15.5); WBC 11.4 k/uL (3.8-10.6)
[2019-09-18] MEDS: LACTATED RINGERS 1,000 ML IV SCH ×4 (11:30→21:51)
[2019-09-18] MEDS ORDERED: ONDANSETRON 4 MG/2 ML VIAL ONE (11:51)
[2019-09-18] MEDS ORDERED: NALBUPHINE 10 MG/ML (1 ML AMP) ONE (11:51)
[2019-09-18] MEDS ORDERED: OXYTOCIN 10 UNIT/ML 1 ML VIAL ONE (11:51)
[2019-09-18] MEDS ORDERED: MORPHINE SULFATE (PF) 0.3 MG/0.3 ML SYR ONE (11:51)
[2019-09-18] MEDS ORDERED: PHENYLEPHRINE-0.9% NACL SYG 1 MG/10 ML SYRINGE ONE (11:51)
--- NOTE | 2019-09-18 12:40 | P.OP ---
Date of Procedure: 09/18/19 Preoperative Diagnosis: IUP at 39 and 1/sevenths weeks, history of 1 desires repeat, short inner conceptual period Postoperative Diagnosis: Same Procedure(s) Performed: Repeat section with tubal ligation Anesthesia: spinal Surgeon: Estela Wang Staff Counsel #1: Susan Gutierrez Estimated Blood Loss (ml): 500 IV fluids (ml): 900 Urine output (ml): 50 Pathology: none sent Condition: stable Disposition: observation Indications for Procedure: Patient request given history of 1 for arrest of descent. Operative Findings: Normal uterus tubes and ovaries were appreciated female delivered at 1213, weight of 7 lbs. 8 oz. with Apgars of 9 and 9 at one and 5 minutes respectively. Description of Procedure: Patient was taken back to the operating suite and spinal anesthesia was obtained without difficulty by the anesthesia department. She was prepped and draped in the normal sterile fashion in the dorsal supine position. A Pfannenstiel skin incision was made with the scalpel and carried through the underlying layer of fascia. The fascia was then incised in the midline and extended laterally. The superior aspect of the fascial incision was then grasped with Trino clamps, elevated and underlying rectus muscles dissected off sharply. Attention was then turned to the inferior aspect of the fascial incision which was grasped with [place] clamps, elevated and underlying rectus muscle was dissected off sharply once again. The rectus muscles were in the midline the peritoneum was identified and entered. The vesicouterine peritoneum was identified and the bladder flap was created using sharp and blunt dissection plane. The bladder blade was then inserted hysterotomy incision was made with the scalpel amniotomy was performed and clear fluid was obtained. The head was encountered and delivered in the usual fashion. The umbilical cord was doubly clamped and cut and was handed off to awaiting RN. The placenta was then delivered manually and the uterus was cleared of all clots and debris. The uterine incision was closed with 0 Vicryl in a running locked fashion. The pelvis was then copiously irrigated. Filshie clips were then opened and placed in the usual fashion on the left and then right tube. Hemostasis was appreciated no abnormalities were noted. The hysterotomy incision was inspected once again hemostasis was appreciated and the uterus was returned to the abdomen. The gutters were cleared of all clots and debris the hysterotomy incision was inspected a small amount of bleeding was noted on the midportion of the incision therefore a [id number] suture was used to obtain hemostasis. Hemostasis was then appreciated. The fascia was then closed with 0 Vicryl in a running fashion. The subcutaneous tissue was irrigated and closed with 3-0 Vicryl in a running fashion. The skin was then closed with 4-0 Vicryl in a subcuticular fashion. Steri-Strips were applied along with sterile dressing. The uterus is noted be firm and below the umbilicus. All counts were correct 2 patient and tolerated delivery well and are resting comfortably.
[2019-09-18] MEDS ORDERED: ACETAMINOPHEN TAB 325 MG TAB PO PRN (13:02)
[2019-09-18] MEDS ORDERED: ACETAMINOPHEN IV (For NPO) 1,000 MG in EMPTY BAG 1 BAG IVPB ONE (13:02)
[2019-09-18] MEDS ORDERED: ONDANSETRON 4 MG/2 ML VIAL IVP PRN (13:02)
[2019-09-18] MEDS ORDERED: NALOXONE 0.4 MG/ML 1 ML VIAL IV PRN (13:02)
[2019-09-18] MEDS ORDERED: diphenhydrAMINE 50 MG CAP PO PRN (13:02)
[2019-09-18] MEDS ORDERED: METOCLOPRAMIDE 5 MG/ML 2 ML VIAL IVP PRN (13:02)
[2019-09-18] MEDS ORDERED: IBUPROFEN IV 800 MG in SODIUM CHLORIDE 0.9% 250 ML IV ONE (13:02)
[2019-09-18] MEDS ORDERED: OXYTOCIN 20 UNITS/1000 ML NS 1,000 ML IV SCH (13:02)
[2019-09-18] MEDS ORDERED: diphenhydrAMINE 50 MG/ML 1 ML VIAL IVP PRN ×2 (13:02)
[2019-09-18] MEDS ORDERED: diphenhydrAMINE 25 MG CAP PO PRN (13:02)
[2019-09-18] MEDS ORDERED: ZOLPIDEM 5 MG TAB PO PRN (13:02)
[2019-09-18 16:31] LABS: Basophils % (A) 0 %; Eosinophils # (A) 0.4 k/uL (0-0.7); Eosinophils % (A) 3 %; HCT 32.8 % (34.0-46.0); HGB 10.2 gm/dL (11.4-16.0); Hypochromasia Slight; Lymphocytes # (A) 1.2 k/uL (1.0-4.8); Lymphocytes % (A) 11 %; MCV 77.3 fL (80.0-100.0); Mean Platelet Volume 8.3; Monocytes # (A) 0.5 k/uL (0-1.0); Monocytes % (A) 4 %; Neutrophils # (A) 9.5 k/uL (1.3-7.7); Neutrophils % (A) 80 %; Platelet Count 211 k/uL (150-450); RBC 4.25 m/uL (3.80-5.40); RDW 15.2 % (11.5-15.5); WBC 11.8 k/uL (3.8-10.6)
[2019-09-18 16:45] LABS: ALT 12 U/L (4-34); AST 23 U/L (14-36); African American GFR (CKD) >90 (>60 ml/min/1.73 sqM); Blood Urea Nitrogen 5 mg/dL (7-17); LDH 574 U/L (313-618); Non-African American GFR(CKD) >90 (>60 ml/min/1.73 sqM); Uric Acid 4.3 mg/dL (3.7-7.4)
[2019-09-18] MEDS ORDERED: LABETALOL 100 MG TAB PO PRN (18:02)
[2019-09-18 18:04] LABS: Appearance,Urine Clear (Clear); Bilirubin,Urine Negative (Negative); Blood,Urine Small (Negative); Color,Urine Yellow; Glucose,Urine (UA) Negative (Negative); Ketones,Urine 3+ (Negative); Leukocyte Esterase,Urine Negative (Negative); Mucus,Urine Rare /hpf; Nitrite,Urine Negative (Negative); Protein,Urine Negative (Negative); RBC,Urine 19 /hpf (0-5); Specific Gravity,Urine 1.021 (1.001-1.035); Squamous Epithelial Cell,Urine <1 /hpf (0-4); Urobilinogen,Urine <2.0 mg/dL (<2.0); WBC,Urine 9 /hpf (0-5)
[2019-09-18] MEDS: SENNOSIDES-DOCUSATE SODIUM 1 EACH TAB PO SCH (21:51)
[2019-09-19] MEDS: HYDROcodone/APAP 5-325MG 1 EACH TAB PO PRN ×4 (00:20→20:31)
[2019-09-19] MEDS: IBUPROFEN 600 MG TAB PO PRN ×4 (05:26→23:24)
[2019-09-19] MEDS: LACTATED RINGERS 1,000 ML IV SCH ×2 (05:28→20:12)
[2019-09-19 06:49] LABS: Basophils % (A) 0 %; Eosinophils # (A) 0.5 k/uL (0-0.7); Eosinophils % (A) 4 %; HGB 9.4 gm/dL (11.4-16.0); Hypochromasia Moderate; Lymphocytes # (A) 1.4 k/uL (1.0-4.8); Lymphocytes % (A) 13 %; MCH 24.4 pg (25.0-35.0); MCHC 31.3 g/dL (31.0-37.0); Mean Platelet Volume 8.9; Monocytes # (A) 0.6 k/uL (0-1.0); Monocytes % (A) 5 %; Neutrophils # (A) 8.5 k/uL (1.3-7.7); Neutrophils % (A) 76 %; Platelet Count 229 k/uL (150-450); RBC 3.84 m/uL (3.80-5.40); RDW 14.9 % (11.5-15.5); WBC 11.2 k/uL (3.8-10.6)
--- NOTE | 2019-09-19 07:57 | P.PNOBGPC ---
Subjective - Subjective Principal diagnosis: POD 1 RCS Interval history: Patient is doing well. She is ambulating and voiding without difficulty. She states her pain is well-controlled. She is bottle feeding. She states her lochia is minimal. 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 Patient reports: Reports appetite normal, Reports voiding normally, Reports pain well controlled, Reports ambulating normally : doing well, bottle feeding Objective - Vital Signs Latest vital signs: Vital Signs Temp Pulse Resp BP BP Pulse Ox 09/19/19 03:52 98.4 F 83 16 134/85 98 09/19/19 00:00 98.2 F 77 16 140/90 99 09/18/19 20:00 98.4 F 87 16 139/85 97 09/18/19 18:16 149/91 09/18/19 15:43 96 F L 72 16 162/97 99 09/18/19 14:45 158/95 09/18/19 14:40 76 16 157/77 09/18/19 14:10 97.5 F L 72 16 141/85 09/18/19 13:40 69 18 145/90 97 09/18/19 13:25 76 16 141/81 98 09/18/19 13:10 86 18 137/85 99 09/18/19 12:55 90 18 123/55 99 09/18/19 12:40 96.6 F L 88 18 120/56 98 09/18/19 10:25 97.3 F L 110 H 18 136/95 98 Intake and Output 09/18/19 09/19/19 09/19/19 22:59 06:59 14:59 Intake Total 2400 Output Total 700 950 Balance 1700 -950 Intake: IV 2400 ACETAMINOPHEN IV (For NPO 400 ) 1,000 mg In Empty Bag 1 bag @ 400 mls/hr IVPB ONCE ONE Rx#:[id number] Lactated Ringers 1,000 ml 1000 @ 125 mls/hr IV .Q8H HELEN Rx#:[id number] Lactated Ringers 1,000 ml 1000 @ 999 mls/hr IV .Q1H1M HELEN Rx#:[id number] Output: Urine 700 950 Uretheral (Gleason) 300 Other: Voiding Method Indwelling Catheter # Voids 1 - Exam Extremities: Present: normal, edema Abdomen: Present: normal appearance Incision: Present: normal, dry, intact Uterus: Present: normal, firm - Labs Labs: Abnormal Lab Results - Last 24 Hours (Table) 09/18/19 09/18/19 09/18/19 Range/Units 10:45 15:52 16:04 WBC 11.4 H 11.8 H (3.8-10.6) k/uL Hgb 10.2 L 10.2 L (11.4-16.0) gm/dL Hct 32.4 L 32.8 L (34.0-46.0) % MCV 76.5 L 77.3 L (80.0-100.0) fL MCH 24.1 L 24.0 L (25.0-35.0) pg Neutrophils # 8.3 H 9.5 H (1.3-7.7) k/uL BUN (7-17) mg/dL Creatinine (0.52-1.04) mg/dL Urine Ketones 3+ H (Negative) Urine Blood Small H (Negative) Urine RBC 19 H (0-5) /hpf Urine WBC 9 H (0-5) /hpf Urine Mucus Rare H (None) /hpf 09/18/19 09/19/19 Range/Units 16:04 06:20 WBC 11.2 H (3.8-10.6) k/uL Hgb 9.4 L (11.4-16.0) gm/dL Hct 30.0 L (34.0-46.0) % MCV 78.0 L (80.0-100.0) fL MCH 24.4 L (25.0-35.0) pg Neutrophils # 8.5 H (1.3-7.7) k/uL BUN 5 L (7-17) mg/dL Creatinine 0.47 L (0.52-1.04) mg/dL Urine Ketones (Negative) Urine Blood (Negative) Urine RBC (0-5) /hpf Urine WBC (0-5) /hpf Urine Mucus (None) /hpf Assessment and Plan (1) H/O section Current Visit: Yes Status: Acute Code(s): Z98.891 - HISTORY OF UTERINE SCAR FROM PREVIOUS SURGERY SNOMED Code(s): 780456357 (2) Positive GBS test Current Visit: No Status: Acute Code(s): B95.1 - STREPTOCOCCUS, GROUP B, CAUSING DISEASES CLASSD ELSWHR SNOMED Code(s): 285899296 (3) Term Current Visit: No Status: Acute Code(s): Z34.80 - ENCOUNTER FOR SUPRVSN OF NORMAL , UNSP TRIMESTER SNOMED Code(s): 69011184 (4) Family planning Current Visit: Yes Status: Acute Code(s): Z30.09 - ENCOUNTER FOR OTH GENERAL CNSL AND ADVICE ON CONTRACEPTION SNOMED Code(s): 631692927 (5) S/P section Current Visit: No Status: Acute Code(s): Z98.891 - HISTORY OF UTERINE SCAR FROM PREVIOUS SURGERY SNOMED Code(s): 607198912 Plan: We will continue routine postoperative care, advance diet to regular this morning.
--- NOTE | 2019-09-19 08:04 | P.PN ---
Progress Note - Text Anesthesia POD 0720. Patient is status post section under spinal anesthesia with intra-thecal preservative free morphine 300 g. Moderate pruritus, good post-op analgesia, and no headache or other complication.
[2019-09-19] MEDS: SENNOSIDES-DOCUSATE SODIUM 1 EACH TAB PO SCH ×2 (08:30→20:31)
[2019-09-19 12:31] VITALS: RESP 16
[2019-09-20] MEDS: HYDROcodone/APAP 5-325MG 1 EACH TAB PO PRN ×2 (03:20→07:26)
[2019-09-20] MEDS: IBUPROFEN 600 MG TAB PO PRN (06:14)
[2019-09-20] MEDS: SENNOSIDES-DOCUSATE SODIUM 1 EACH TAB PO SCH (07:26)
[2019-09-20 07:38] VITALS: BP 140/92; PULSE 87; TEMP 97.9
--- NOTE | 2019-09-20 07:58 | P.DS ---
Providers Date of admission: 09/18/19 10:11 Expected date of discharge: 09/20/19 Attending physician: Estela Wang Primary care physician: Stated None - Discharge Diagnosis(es) (1) H/O section Current Visit: Yes Status: Acute (2) Positive GBS test Current Visit: No Status: Acute (3) Term Current Visit: No Status: Acute (4) Family planning Current Visit: Yes Status: Acute (5) S/P section Current Visit: No Status: Acute Hospital Course: This is a pleasant 29-year-old 3 para 1011 that presented to labor and delivery at 39 and one sevenths weeks for planned scheduled elective repeat section with tubal ligation. Patient had a prior secondary to arrest of first stage of labor, and at this time she states she is done with family planning therefore she requests permanent sterilization. Patient has been receiving routine care with myself, she had a short inner conceptual. As she has a [id number] at home. She had essentially uncomplicated care, on bloodwork should a blood type of B+, ru elise status is immune, hepatitis B surface antigen is negative, HIV negative, RPR was nonreactive and GBS was positive. Patient was admitted and repeat C- section with tubal ligation was performed without difficulty for further details on the please see the operative report. Patient has had an uncomplicated postoperative course. On this postop day #2 she is ambulating and voiding without difficulty. She is tolerating a regular diet without nausea or vomiting. She states her pain is well-controlled with [place]/ibuprofen. Her lochia is minimal and she is bottle feeding. She does wish discharge home on this postop day #2. Patient Condition at Discharge: Good Plan - Discharge Summary Discharge Rx Participant: Yes New Discharge Prescriptions: No Action Pnv No.95/Ferrous Fum/Folic AC [ Multivitamin Tablet] 1 each PO DAILY Iron 5 Mg 5 mg PO DAILY Discharge Medication List Iron 5 Mg 5 mg PO DAILY 09/14/19 [History] Pnv No.95/Ferrous Fum/Folic AC [ Multivitamin Tablet] 1 each PO DAILY 09/14/19 [History] Follow up Appointment(s)/Referral(s): Estela Wang DO [Doctor of Osteopathic Medicine] - 2 Weeks Patient Instructions/Handouts: (DC), (GEN) Discharge Disposition: HOME SELF-CARE
== END 2019-09-20 10:55 | disposition home or self-care (01) | DRG 785 ==
LOC: 4FBP 10:11
PROVIDERS: ADMIT Obstetrics & Gynecology Obstetrics; ATTEND Obstetrics & Gynecology Obstetrics
PROC: 0UL70CZ Occlusion of Bilateral Fallopian Tubes with Extraluminal Device, Open Approach (ICD-10-PCS; 2019-09-18)
PROC: 10D00Z1 Extraction of Products of Conception, Low, Open Approach (ICD-10-PCS; principal; 2019-09-18 12:00)
DX: O34.211 Maternal care for low transverse scar from previous cesarean delivery (principal); O99.824 Streptococcus B carrier state complicating childbirth; L29.9 Pruritus, unspecified; O99.89 Other specified diseases and conditions complicating pregnancy, childbirth and the puerperium; Z30.2 Encounter for sterilization; Z37.0 Single live birth; Z3A.39 39 weeks gestation of pregnancy; Z86.59 Personal history of other mental and behavioral disorders
CPT/HCPCS: 81001; 82565; 83615; 84450; 84460; 84520; 84550; 85025; 86850; 86900; 86901

== ENCOUNTER → 2021-07-04 | Outpatient (CLI) | payer BC ==
--- NOTE | 2021-07-04 11:20 | US ---
EXAMINATION TYPE: Transabdominal DATE OF EXAM: 07/04/2021 10:43 AM COMPARISON: NONE CLINICAL HISTORY: R68.89 with tubal ligation. left pelvic pain, tubal ligation September 2019 EXAM PERFORMED: Transabdominal (TA) EXAM MEASUREMENTS: GESTATIONAL AGE / DATING Physician Established: Not yet established Dates by LMP: (6 weeks/0 days) EDC: 02/27/22 Dates by First Scan: No previous this is first scan Dates by Current Scan for: (6 weeks/1 days) EDC: 02/26/22 MATERNAL ANATOMY Uterus: 7.8 x 5.5 x 5.9cm Right Ovary: 3.7 x 2.1 x 2.1cm Left Ovary: 4.8 x 2.9 x 3.5cm Post CDS / Adnexa: appears wnl Presence of free fluid: no Presence of corpus luteal cyst: yes, complex cystic area left ovary = 2.0 x 2.8 x 3.1cm GESTATION / SURVEY CRL: 0.4cm (6 weeks/1 days) Yolk Sac (normal less than 6mm): 0.3cm Heart Rate: 120 bpm Rhythm: Normal IUP: Viable IUP Date of LMP: 05/23/21 Beta HcG (if available): Not available at this time IMPRESSION: Single viable intrauterine
== END | disposition home or self-care (01) ==
LOC: RADUSWWP 10:28
PROVIDERS: ATTEND Obstetrics & Gynecology Obstetrics
DX: O34.81 Maternal care for other abnormalities of pelvic organs, first trimester (principal); N83.202 Unspecified ovarian cyst, left side; Z3A.08 8 weeks gestation of pregnancy
CPT/HCPCS: 76801

== ENCOUNTER 2021-11-08 14:08 | Emergency (ER) | payer BC ==
[2021-11-08 14:22] VITALS: TEMP 98.2
[2021-11-08] MEDS ORDERED: ACETAMINOPHEN TAB 500 MG TAB PO STA (14:43)
[2021-11-08] MEDS ORDERED: SODIUM CHLORIDE 0.9% 1,000 ML IV ONE (14:43)
--- NOTE | 2021-11-08 14:46 | ED ---
General Adult HPI - General Chief complaint: Dizziness Stated complaint: SOB/High Hr/Dizziness Time Seen by Provider: 11/08/21 14:34 Source: patient, RN notes reviewed Mode of arrival: ambulatory Limitations: no limitations - History of Present Illness Initial comments: This is a pleasant 31-year-old female who is 24 weeks . She comes on after being cleared by mother-baby. Patient has had 2 episodes of lightheadedness, shortness of breath, chest pressure, and racing heart rate. Patient states this started last night when she stood up. Patient states she got up this morning and stood up to make breakfast and had a similar symptom. Patient is complaining of some chest pressure at this time. Patient states her heart rate was also fast according to her Apple watch. Patient complaining of chest pressure. Patient denies any vaginal bleeding or vaginal leakage. No changes in bowel movements or urination. No nausea or vomiting. No known fever or chills. Patient was sent to the ER for evaluation by Dr. Mckeon - Related Data Home Medications Medication Instructions Recorded Confirmed Pnv No.95/Ferrous Fum/Folic AC 1 tab PO DAILY 09/14/19 11/08/21 [ Multivitamin Tablet] Allergies Allergy/AdvReac Type Severity Reaction Status Date / Time No Known Allergies Allergy Verified 11/08/21 15:02 Review of Systems ROS Statement: Those systems with pertinent positive or pertinent negative responses have been documented in the HPI. ROS Other: All systems not noted in ROS Statement are negative. Past Medical History Past Medical History: No Reported History Additional Past Medical History / Comment(s): states hypertension with delivery of 1st baby., -LMP November 2018. History of Any Multi-Drug Resistant Organisms: None Reported Past Surgical History: Orthopedic Surgery Additional Past Surgical History / Comment(s): D&C Past Anesthesia/Blood Transfusion Reactions: No Reported Reaction Additional Past Anesthesia/Blood Transfusion Reaction / Comment(s): states elevated bloodpressure with 1st baby Past Psychological History: Anxiety, Bipolar, Depression Smoking Status: Never smoker - Past Family History Father Family Medical History: No Reported History General Exam - General Exam Comments Initial Comments: Patient does not appear to be in any distress. Vital signs stable, patient is afebrile. Limitations: no limitations General appearance: alert, in no apparent distress Head exam: Present: atraumatic, normocephalic, normal inspection Eye exam: Present: normal appearance, PERRL, EOMI. Absent: scleral icterus, conjunctival injection, periorbital swelling ENT exam: Present: normal exam, mucous membranes moist Neck exam: Present: normal inspection. Absent: tenderness, meningismus, lymphadenopathy Respiratory exam: Present: normal lung sounds bilaterally. Absent: respiratory distress, wheezes, rales, rhonchi, stridor Cardiovascular Exam: Present: regular rate, normal rhythm, normal heart sounds. Absent: systolic murmur, diastolic murmur, rubs, gallop, clicks GI/Abdominal exam: Present: soft, normal bowel sounds. Absent: tenderness (Gravid uterus without tenderness.), guarding, rebound, rigid Extremities exam: Present: normal inspection, full ROM, normal capillary refill. Absent: tenderness, pedal edema, joint swelling, calf tenderness Back exam: Present: normal inspection Neurological exam: Present: alert, oriented X3, CN II-XII intact Psychiatric exam: Present: normal affect, normal mood Skin exam: Present: warm, dry, intact, normal color. Absent: rash Course Vital Signs 11/08/21 11/08/21 11/08/21 14:18 15:22 15:31 Temperature 98.2 F Pulse Rate 89 80 Pulse Rate [ 84 Left Sitting Pulse Oximetery ] Pulse Rate [ 102 H Left Standing Pulse Oximetery ] Pulse Rate [ 87 Left Supine Pulse Oximetery ] Respiratory 18 22 18 Rate Blood Pressure 114/74 132/94 Blood Pressure 136/90 [Right Arm Sitting] Blood Pressure 130/96 [Right Arm Standing] Blood Pressure 122/94 [Right Arm Supine] O2 Sat by Pulse 100 100 98 Oximetry 11/08/21 16:32 Temperature Pulse Rate 87 Pulse Rate [ Left Sitting Pulse Oximetery ] Pulse Rate [ Left Standing Pulse Oximetery ] Pulse Rate [ Left Supine Pulse Oximetery ] Respiratory 18 Rate Blood Pressure 141/94 Blood Pressure [Right Arm Sitting] Blood Pressure [Right Arm Standing] Blood Pressure [Right Arm Supine] O2 Sat by Pulse 99 Oximetry EKG Findings - EKG Comments: EKG Findings:: EKG done at 1453. ED attending physician reveals sinus rhythm with rate of 93, left axis deviation, no acute ST or T-wave changes, normal intervals, normal cures morphology Medical Decision Making - Medical Decision Making Initial workup to include cardiopulmonary/abdominal evaluation, orthostatics, hydration. Patient reevaluated and is in no acute distress. Patient symptomology likely related to orthostasis, patient may be mildly dehydrated. I had a long conversation with the on-call practice coordinator, Dr. Mckeon who recommended the computed tomography scan to rule out pulmonary embolism as the patient had tachycardia, and some chest pressure. It was no evidence of PE. Given the patient's age and low cardiac risk or I don't believe this is related to cardiac ischemia. Patient's troponin was negative. Patient's EKG was essentially no rmal. The case was discussed in detail with ED attending physician. Presentation, findings, treatment plan discussed in detail. Patient was told to return to the ER for any signs or symptoms worsen. Told to return immediately if any other problems arise. All questions answered. Treatment plan discussed. Patient in agreement Every effort has been made to ensure accuracy of this dictation. However, due to the limitations of electronic medical records and dictation devices, errors in charting still occur. All findings discussed with the patient. All questions answered. Discussed the risks versus benefits of computed tomography scan with the patient prior to the test. Computed tomography scan was ordered through shared decision-making. We'll have the patient follow-up with her practice coordinator on Wednesday without fail. Mild hyponatremia is likely nondiagnostic patient also had mild anemia consistent with . Patient was cleared by mother-baby prior to the ER visit - Lab Data Result diagrams: 11/08/21 14:53 11/08/21 14:53 Lab Results 11/08/21 11/08/21 11/08/21 Range/Units 14:53 14:53 14:53 WBC 13.1 H (3.8-10.6) k/uL RBC 3.90 (3.80-5.40) m/uL Hgb 11.1 L (11.4-16.0) gm/dL Hct 32.5 L (34.0-46.0) % MCV 83.4 (80.0-100.0) fL MCH 28.6 (25.0-35.0) pg MCHC 34.3 (31.0-37.0) g/dL RDW 13.5 (11.5-15.5) % Plt Count 237 (150-450) k/uL MPV 8.1 Neutrophils % 71 % Lymphocytes % 16 % Monocytes % 4 % Eosinophils % 7 % Basophils % 0 % Neutrophils # 9.3 H (1.3-7.7) k/uL Lymphocytes # 2.1 (1.0-4.8) k/uL Monocytes # 0.6 (0-1.0) k/uL Eosinophils # 0.8 H (0-0.7) k/uL Basophils # 0.0 (0-0.2) k/uL PT 9.7 (9.0-12.0) sec INR 0.9 (<1.2) APTT 22.0 (22.0-30.0) sec Sodium 132 L (137-145) mmol/L Potassium 3.8 (3.5-5.1) mmol/L Chloride 105 (98-107) mmol/L Carbon Dioxide 21 L (22-30) mmol/L Anion Gap 6 mmol/L BUN 9 (7-17) mg/dL Creatinine 0.45 L (0.52-1.04) mg/dL Est GFR (CKD-EPI)AfAm >90 (>60 ml/min/1.73 sqM) Est GFR (CKD-EPI)NonAf >90 (>60 ml/min/1.73 sqM) Glucose 85 (74-99) mg/dL Calcium 9.3 (8.4-10.2) mg/dL Magnesium 1.6 (1.6-2.3) mg/dL Total Bilirubin 0.4 (0.2-1.3) mg/dL AST 15 (14-36) U/L ALT 9 (4-34) U/L Alkaline Phosphatase 70 (38-126) U/L Troponin I (0.000-0.034) ng/mL NT-Pro-B Natriuret Pep pg/mL Total Protein 6.7 (6.3-8.2) g/dL Albumin 3.6 (3.5-5.0) g/dL Urine Color Urine Appearance (Clear) Urine pH (5.0-8.0) Ur Specific [place] (1.001-1.035) Urine Protein (Negative) Urine Glucose (UA) (Negative) Urine Ketones (Negative) Urine Blood (Negative) Urine Nitrite (Negative) Urine Bilirubin (Negative) Urine Urobilinogen (<2.0) mg/dL Ur Leukocyte Esterase (Negative) Urine RBC (0-5) /hpf Urine WBC (0-5) /hpf Ur Squamous Epith Cells (0-4) /hpf Urine Bacteria (None) /hpf Urine Mucus (None) /hpf Coronavirus (PCR) (Not Detectd) 11/08/21 11/08/21 11/08/21 Range/Units 14:53 14:53 15:31 WBC (3.8-10.6) k/uL RBC (3.80-5.40) m/uL Hgb (11.4-16.0) gm/dL Hct (34.0-46.0) % MCV (80.0-100.0) fL MCH (25.0-35.0) pg MCHC (31.0-37.0) g/dL RDW (11.5-15.5) % Plt Count (150-450) k/uL MPV Neutrophils % % Lymphocytes % % Monocytes % % Eosinophils % % Basophils % % Neutrophils # (1.3-7.7) k/uL Lymphocytes # (1.0-4.8) k/uL Monocytes # (0-1.0) k/uL Eosinophils # (0-0.7) k/uL Basophils # (0-0.2) k/uL PT (9.0-12.0) sec INR (<1.2) APTT (22.0-30.0) sec Sodium (137-145) mmol/L Potassium (3.5-5.1) mmol/L Chloride (98-107) mmol/L Carbon Dioxide (22-30) mmol/L Anion Gap mmol/L BUN (7-17) mg/dL Creatinine (0.52-1.04) mg/dL Est GFR (CKD-EPI)AfAm (>60 ml/min/1.73 sqM) Est GFR (CKD-EPI)NonAf (>60 ml/min/1.73 sqM) Glucose (74-99) mg/dL Calcium (8.4-10.2) mg/dL Magnesium (1.6-2.3) mg/dL Total Bilirubin (0.2-1.3) mg/dL AST (14-36) U/L ALT (4-34) U/L Alkaline Phosphatase (38-126) U/L Troponin I <0.012 (0.000-0.034) ng/mL NT-Pro-B Natriuret Pep 23 pg/mL Total Protein (6.3-8.2) g/dL Albumin (3.5-5.0) g/dL Urine Color Urine Appearance (Clear) Urine pH (5.0-8.0) Ur Specific [place] (1.001-1.035) Urine Protein (Negative) Urine Glucose (UA) (Negative) Urine Ketones (Negative) Urine Blood (Negative) Urine Nitrite (Negative) Urine Bilirubin (Negative) Urine Urobilinogen (<2.0) mg/dL Ur Leukocyte Esterase (Negative) Urine RBC (0-5) /hpf Urine WBC (0-5) /hpf Ur Squamous Epith Cells (0-4) /hpf Urine Bacteria (None) /hpf Urine Mucus (None) /hpf Coronavirus (PCR) Not Detected (Not Detectd) 11/08/21 Range/Units 16:29 WBC (3.8-10.6) k/uL RBC (3.80-5.40) m/uL Hgb (11.4-16.0) gm/dL Hct (34.0-46.0) % MCV (80.0-100.0) fL MCH (25.0-35.0) pg MCHC (31.0-37.0) g/dL RDW (11.5-15.5) % Plt Count (150-450) k/uL MPV Neutrophils % % Lymphocytes % % Monocytes % % Eosinophils % % Basophils % % Neutrophils # (1.3-7.7) k/uL Lymphocytes # (1.0-4.8) k/uL Monocytes # (0-1.0) k/uL Eosinophils # (0-0.7) k/uL Basophils # (0-0.2) k/uL PT (9.0-12.0) sec INR (<1.2) APTT (22.0-30.0) sec Sodium (137-145) mmol/L Potassium (3.5-5.1) mmol/L Chloride (98-107) mmol/L Carbon Dioxide (22-30) mmol/L Anion Gap mmol/L BUN (7-17) mg/dL Creatinine (0.52-1.04) mg/dL Est GFR (CKD-EPI)AfAm (>60 ml/min/1.73 sqM) Est GFR (CKD-EPI)NonAf (>60 ml/min/1.73 sqM) Glucose (74-99) mg/dL Calcium (8.4-10.2) mg/dL Magnesium (1.6-2.3) mg/dL Total Bilirubin (0.2-1.3) mg/dL AST (14-36) U/L ALT (4-34) U/L Alkaline Phosphatase (38-126) U/L Troponin I (0.000-0.034) ng/mL NT-Pro-B Natriuret Pep pg/mL Total Protein (6.3-8.2) g/dL Albumin (3.5-5.0) g/dL Urine Color Yellow Urine Appearance Cloudy H (Clear) Urine pH 6.0 (5.0-8.0) Ur Specific [place] 1.029 (1.001-1.035) Urine Protein Trace H (Negative) Urine Glucose (UA) Negative (Negative) Urine Ketones Negative (Negative) Urine Blood Negative (Negative) Urine Nitrite Negative (Negative) Urine Bilirubin Negative (Negative) Urine Urobilinogen <2.0 (<2.0) mg/dL Ur Leukocyte Esterase Negative (Negative) Urine RBC 3 (0-5) /hpf Urine WBC 2 (0-5) /hpf Ur Squamous Epith Cells 8 H (0-4) /hpf Urine Bacteria Rare H (None) /hpf Urine Mucus Many H (None) /hpf Coronavirus (PCR) (Not Detectd) Disposition Clinical Impression: Dehydration, Current determined by history, Postural orthostatic tachycardia syndrome Disposition: HOME SELF-CARE Instructions (If sedation given, give patient instructions): Dizziness (ED), Dehydration (DC), Tachycardia (ED) Additional Instructions: Increase oral hydration. Follow-up with your practice coordinator first thing Wednesday morning. Return here to the ER if any symptoms worsen or any other problems arise. Is patient prescribed a controlled substance at d/c from ED?: No Referrals: Estela Wang DO [Doctor of Osteopathic Medicine] - 11/10/21 Time of Disposition: 16:58
[2021-11-08 15:18] LABS: Basophils % (A) 0 %; Eosinophils # (A) 0.8 k/uL (0-0.7); Eosinophils % (A) 7 %; HCT 32.5 % (34.0-46.0); HGB 11.1 gm/dL (11.4-16.0); Lymphocytes # (A) 2.1 k/uL (1.0-4.8); Lymphocytes % (A) 16 %; MCH 28.6 pg (25.0-35.0); MCHC 34.3 g/dL (31.0-37.0); MCV 83.4 fL (80.0-100.0); Mean Platelet Volume 8.1; Monocytes # (A) 0.6 k/uL (0-1.0); Monocytes % (A) 4 %; Neutrophils # (A) 9.3 k/uL (1.3-7.7); Neutrophils % (A) 71 %; Platelet Count 237 k/uL (150-450); RDW 13.5 % (11.5-15.5); WBC 13.1 k/uL (3.8-10.6)
[2021-11-08 15:29] LABS: ALT 9 U/L (4-34); AST 15 U/L (14-36); African American GFR (CKD) >90 (>60 ml/min/1.73 sqM); Albumin 3.6 g/dL (3.5-5.0); Alkaline Phosphatase 70 U/L (38-126); Anion Gap 6 mmol/L; Blood Urea Nitrogen 9 mg/dL (7-17); Calcium 9.3 mg/dL (8.4-10.2); Carbon Dioxide 21 mmol/L (22-30); Chloride 105 mmol/L (98-107); Glucose 85 mg/dL (74-99); Magnesium 1.6 mg/dL (1.6-2.3); Non-African American GFR(CKD) >90 (>60 ml/min/1.73 sqM); Potassium 3.8 mmol/L (3.5-5.1); Sodium 132 mmol/L (137-145); Total Bilirubin 0.4 mg/dL (0.2-1.3); Total Protein 6.7 g/dL (6.3-8.2)
[2021-11-08 15:32] LABS: INR 0.9 (<1.2); Prothrombin Time 9.7 sec (9.0-12.0)
[2021-11-08 15:33] VITALS: RESP 18
[2021-11-08 16:36] VITALS: BP 141/94; PULSE 87
[2021-11-08 16:43] LABS: Appearance,Urine Cloudy (Clear); Bacteria,Urine Rare /hpf; Bilirubin,Urine Negative (Negative); Blood,Urine Negative (Negative); Color,Urine Yellow; Glucose,Urine (UA) Negative (Negative); Ketones,Urine Negative (Negative); Leukocyte Esterase,Urine Negative (Negative); Mucus,Urine Many /hpf; Nitrite,Urine Negative (Negative); Protein,Urine Trace (Negative); RBC,Urine 3 /hpf (0-5); Specific Gravity,Urine 1.029 (1.001-1.035); Squamous Epithelial Cell,Urine 8 /hpf (0-4); Urobilinogen,Urine <2.0 mg/dL (<2.0); WBC,Urine 2 /hpf (0-5)
--- NOTE | 2021-11-08 16:51 | CT ---
EXAMINATION TYPE: CT angio chest DATE OF EXAM: 11/08/2021 4:08 PM COMPARISON: None HISTORY: Chest pain and elevated heart rate. Patient is [address] DLP: 533.1 mGycm Automated exposure control for dose reduction was used. CONTRAST: CTA scan of the thorax is performed with IV Contrast, patient injected with 69ml mL of Isovue 370, pu lmonary embolism protocol. FINDINGS: Respiratory motion limits evaluation of segmental and subsegmental pulmonary arteries. No filling def ects are seen in the pulmonary trunk, right or left pulmonary arteries and the central aspect of the pulmonary arteries. Further limitation is caused by streak artifact from the contrast in the superior vena cava. The pulmonary trunk diameter within normal limits. Intrathoracic aorta grossly nonaneurysmal. No focal airspace opacity, pneumothorax or effusion. No lung mass visualized. Evaluation of small lung nodules limited by respiratory motion. No significa nt lung nodule appreciated. Grossly patent tracheobronchial tree without endobronchial mass. The heart size is mildly enlarged. N o pericardial effusion seen. No mediastinal or hilar enlarged lymph nodes seen. Prominent lymph nodes are seen in the bilateral ax illa. The upper abdomen is unremarkable. No acute osseous abnormality seen. No significant soft tissue swelling. IMPRESSION: 1. LIMITED EVALUATION OF SEGMENTAL AND SUBSEGMENTAL PULMONARY ARTERIES DUE TO MOTION AND STREAK ARTIF ACT. 2. NO PULMONARY ARTERIAL EMBOLISM IN THE PULMONARY TRUNK OR CENTRAL BRANCHES. 3. NO FOCAL AIRSPACE OPACITY, PNEUMOTHORAX OR PLEURAL EFFUSION.
== END 2021-11-08 17:29 | disposition home or self-care (01) ==
LOC: EC 14:08
DX: O99.412 Diseases of the circulatory system complicating pregnancy, second trimester (principal); O99.282 Endocrine, nutritional and metabolic diseases complicating pregnancy, second trimester; O10.912 Unspecified pre-existing hypertension complicating pregnancy, second trimester; E86.0 Dehydration; I49.8 Other specified cardiac arrhythmias; R06.02 Shortness of breath; R07.89 Other chest pain; Z3A.24 24 weeks gestation of pregnancy; Z20.822 Contact with and (suspected) exposure to COVID-19
CPT/HCPCS: 36415; 93005; 83880; 80053; 83735; 84484; 85025; 85610; 85730; 81001; 87635; 71275; 99285; 96360; Q9967

== ENCOUNTER → 2021-11-08 | Outpatient (CLI) | payer BC ==
[2021-11-08 14:41] VITALS: BP 142/85; PULSE 103; RESP 18
--- NOTE | 2021-11-14 07:05 | P.MSEPDOC ---
Presenting Problems - Arrival Data Date of Arrival on Unit: 11/08/21 Time of Arrival on Unit: 13:09 Mode of Transport: Wheelchair - Complaint OB-Reason for Admission/Chief Complaint: Dizziness Comment: pt presents with SOB, chest pain, elevated Medical History - Information : 3 Para: 2 Term: 2 : 0 Abortions: Spontaneous or Elective: 0 Number of Living Children: 2 - Gestational Age Gestational Age by ASHLEY (wks/days): 24 Weeks and 1 Days - History Complications: Prior Review of Systems - Review of Systems Constitutional: No problems Breast: No problems ENT: No problems Cardiovascular: Chest pain Respiratory: No problems Gastrointestinal: No problems Genitourinary: No problems Musculoskeletal: No problems Neurological: No problems Skin: No problems Comment: pt has chest pain and SOB Vital Signs - Pulse Right Brachial Pulse Rate: 103 Pulse Assessment Method: Automatic Cuff - Respirations Respiratory Rate: 18 Oxygen Delivery Method: Room Air O2 Sat by Pulse Oximetry: 100 - Blood Pressure Right Arm Blood Pressure: 142/85 Blood Pressure Mean: 104 Blood Pressure Source: Automatic Cuff Medical Screen Scoring - Uterine Contractions Frequency From (mins): 0 - Assessment - Baby A Baseline FHR: 145 Heart Rate - NICHD Category: Category I (Normal) Physician Notification - Physician Notified Physician Notified Date: 11/08/21 Physician Notified Time: 13:55 Physician: Rosemary Mckeon New Order Received: Yes - Notification Comment Comment: FHT category 1 runing baseline at 145, pt is to be discharged and taken to ER for further evaluation of possible PE Maternal Triage Index - Maternal Triage Index Presenting for scheduled procedure w/no complaint: No - Stat/Priority 1 Stat Priority 1: No - Urgent/Priority 2 Urgent Priority 2: Yes Provider Notified: Rosemary Mckeon Provider Notified Time: 13:55 Criteria Met for Priority 2: pt is 24 1/7 weeks ga, having chest pain, SOB, dizzy and lightheaded Disposition - Disposition OB Disposition: Triage, Discharge to home, Written follow up instructions reviewed Discharge Date: 11/08/21 Discharge Time: 14:00 I agree with the RN Medical Screening Exam: Yes Case reviewed; plan agreed upon as documented in EMR&OBIX.: Yes Diagnosis: SOB in
== END ==
LOC: FBPOP 13:09
PROVIDERS: ATTEND Obstetrics & Gynecology
DX: O99.512 Diseases of the respiratory system complicating pregnancy, second trimester (principal); R06.02 Shortness of breath; Z3A.24 24 weeks gestation of pregnancy
CPT/HCPCS: 99213

== ENCOUNTER 2022-02-19 11:16 | Inpatient (IN) | payer BC, OTHER ==
[2022-02-19] MEDS ORDERED: CITRIC ACID-SODIUM CITRATE 15 ML CUP PO ONE (11:46)
[2022-02-19 12:22] LABS: Anisocytosis Slight; Basophils % (A) 0 %; Eosinophils # (A) 0.7 k/uL (0-0.7); Eosinophils % (A) 6 %; HCT 32.7 % (34.0-46.0); HGB 9.9 gm/dL (11.4-16.0); Hypochromasia Marked; Lymphocytes # (A) 1.5 k/uL (1.0-4.8); Lymphocytes % (A) 15 %; MCH 23.1 pg (25.0-35.0); MCHC 30.4 g/dL (31.0-37.0); Microcytosis Slight; Monocytes # (A) 0.5 k/uL (0-1.0); Monocytes % (A) 5 %; Neutrophils # (A) 7.4 k/uL (1.3-7.7); Neutrophils % (A) 71 %; Platelet Count 227 k/uL (150-450); Poikilocytosis Slight; RBC 4.31 m/uL (3.80-5.40); RDW 16.7 % (11.5-15.5); WBC 10.5 k/uL (3.8-10.6)
[2022-02-19 12:29] LABS: Appearance,Urine Cloudy (Clear); Bilirubin,Urine Negative (Negative); Blood,Urine Negative (Negative); Color,Urine Yellow; Glucose,Urine (UA) Negative (Negative); Ketones,Urine Negative (Negative); Leukocyte Esterase,Urine Negative (Negative); Mucus,Urine Occasional /hpf; Nitrite,Urine Negative (Negative); Protein,Urine Trace (Negative); Specific Gravity,Urine 1.019 (1.001-1.035); Squamous Epithelial Cell,Urine 11 /hpf (0-4); Urobilinogen,Urine <2.0 mg/dL (<2.0); WBC,Urine 2 /hpf (0-5)
[2022-02-19 12:30] LABS: ALT 13 U/L (4-34); AST 22 U/L (14-36); African American GFR (CKD) >90 (>60 ml/min/1.73 sqM); Blood Urea Nitrogen 5 mg/dL (7-17); LDH 435 U/L (313-618); Non-African American GFR(CKD) >90 (>60 ml/min/1.73 sqM); Uric Acid 4.5 mg/dL (3.7-7.4)
[2022-02-19 12:31] LABS: Protein/Creatinine Ratio,Urine 0.048
[2022-02-19 12:47] LABS: INR 0.9 (<1.2); Partial Thromboplastin Time 22.3 sec (22.0-30.0); Prothrombin Time 9.6 sec (9.0-12.0)
[2022-02-19 13:09] LABS: Amphetamine Screen,Urine Not Detected (NotDetected); Barbiturate Screen,Urine Not Detected (NotDetected); Benzodiazepines Screen,Urine Not Detected (NotDetected); Cocaine Screen,Urine Not Detected (NotDetected); Methadone Screen, Urine Not Detected (NotDetected); Opiate Screen,Urine Not Detected (NotDetected); Oxycodone Screen, Urine Not Detected (NotDetected); Phencyclidine Screen,Urine Not Detected (NotDetected); Tricyclic Antidepressant,Urine Not Detected (NotDetected); Urn Cannabinoid Scrn Detected (NotDetected)
[2022-02-19] MEDS ORDERED: ACETAMINOPHEN IV (For NPO) 1,000 MG in EMPTY BAG 1 BAG IVPB STA (13:55)
[2022-02-19] MEDS: LACTATED RINGERS 1,000 ML IV SCH ×3 (14:18→22:35)
[2022-02-19] MEDS ORDERED: ONDANSETRON 4 MG/2 ML VIAL ONE (16:03)
[2022-02-19] MEDS ORDERED: DEXAMETHASONE SOD PHOSPHATE 10 MG/ML 1 ML VIAL ONE (16:03)
[2022-02-19] MEDS ORDERED: KETOROLAC 15 MG/ML 1 ML VIAL ONE (16:03)
[2022-02-19] MEDS ORDERED: NALBUPHINE 10 MG/ML (1 ML AMP) ONE (16:03)
[2022-02-19] MEDS ORDERED: MORPHINE SULFATE (PF) 0.3 MG/0.3 ML SYR ONE (16:03)
[2022-02-19] MEDS ORDERED: OXYTOCIN 30 UNITS/500 ML NS BAG IV ONE (16:03)
[2022-02-19] MEDS ORDERED: ZOLPIDEM 5 MG TAB PO PRN (16:58)
[2022-02-19] MEDS ORDERED: ONDANSETRON 4 MG/2 ML VIAL IVP PRN ×2 (16:58→17:26)
[2022-02-19] MEDS ORDERED: diphenhydrAMINE 25 MG CAP PO PRN (16:58)
[2022-02-19] MEDS ORDERED: diphenhydrAMINE 50 MG/ML 1 ML VIAL IVP PRN ×2 (16:58)
[2022-02-19] MEDS ORDERED: METOCLOPRAMIDE 5 MG/ML 2 ML VIAL IVP PRN (16:58)
[2022-02-19] MEDS ORDERED: diphenhydrAMINE 50 MG CAP PO PRN (16:58)
[2022-02-19] MEDS ORDERED: SIMETHICONE 80 MG CHEWABLE PO PRN (16:58)
[2022-02-19] MEDS ORDERED: NALOXONE 0.4 MG/ML 1 ML VIAL IV PRN (16:58)
[2022-02-19] MEDS ORDERED: OXYTOCIN 30 UNITS/500 ML NS 30 UNIT in SALINE 1 500ML.BAG IV SCH (17:00)
--- NOTE | 2022-02-19 17:05 | P.OP ---
Date of Procedure: 02/19/22 Preoperative Diagnosis: IUP at 36-6/7 weeks, gestational hypertension, history of 2, failed prior tubal desires tubal ligation Postoperative Diagnosis: Same Procedure(s) Performed: Repeat section with tubal ligation, fimbriectomy bilaterally Anesthesia: spinal Surgeon: Estela Wang [employer]: Rosemary Mckeon Estimated Blood Loss (ml): 300 IV fluids (ml): 500 Urine output (ml): 20 Pathology: other (Placenta, bilateral sections of fallopian tube and from) Condition: stable Disposition: PACU Indications for Procedure: 31-year-old at 38-6/7 weeks that presents to labor and delivery from the office with noted elevated blood pressures 150/100. Patient has 2 prior C- sections with tubal ligation done with the last . Patient had a tubal failure. Patient desires salpingectomy if possible. Operative Findings: Viable male delivered at 1629, weight of 7 lbs. 10 oz., Apgars of 9 and 9 at one and 5 minutes respectively. Both Filshie clips were noted to be on the fallopian tubes bilaterally, normal ovaries and uterus were appreciated. Description of Procedure: Patient was taken back to the operating suite where spinal anesthesia was found be adequate by the anesthesia department. She was then prepped and draped in the normal sterile fashion in the dorsal supine position. A Pfannenstiel skin incision was made with the scalpel and carried through the underlying layer of fascia. The fascia was then incised in the midline and the incision was extended laterally. The superior aspect of the fascial incision was then grasped nicole clamps, elevated and underlying rectus muscles dissected off sharply. Attention was then turned to the inferior aspect of the fascial incision which was grasped nicole clamps, elevated and underlying rectus muscles dissected off once again. A rectus defect was appreciated the rectus muscles were then lightly . The bladder blade was then inserted into the pelvis anterior bladder adhesions were appreciated these were taken down sharply. Urine was clear within the Gleason catheter during the procedure. Hysterotomy incision was made with the scalpel clear fluid was obtained upon rupture of membranes the was delivered in a vertex presentation in the usual fashion, spontaneous cry was noted at , the umbilical cord was doubly clamped and cut and the was handed to waiting RN. The placenta was then delivered manually intact with a three-vessel cord being noted. The uterus was then delivered from the abdomen, the uterine incision was closed with 0 Vicryl in a running locked fashion hemostasis was appreciated. The left fallopian tube was then grasped with a hemostat and 0 catgut was used to tie off a segment of the fallopian tube 2. This segment of tube with the Filshie clip in place was transected sharply hemostasis was appreciated. The fimbriated end was then grasped with a hemostat and the same catgut was used to tie off the fimbriated end and excised it. Hemostasis was appreciated. This was then repeated on the opposite side. Tubal sites along with fimbria sites were found to be hemostatic at the end. The hysterotomy incision was inspected found to be hemostatic. The uterus was then returned to the abdomen. The gutters were cleared of all clots and debris. Uterine incision was inspected found to be hemostatic both tubal sites were appreciated to be hemostatic as well. The rectus muscles were loosely reapproximated any points of bleeding on the rectus muscles were made hemostatic with the Bovie. The fascia was then closed with 0 Vicryl in a running fashion from one lateral edge the other. The subcutaneous tissue was then irrigated found to be hemostatic and closed with 3-0 Vicryl. The skin was then closed with 4-0 Vicryl in a subcu fashion. Steri-Strips and sterile dressings were applied as needed. all counts were noted be correct 2, patient and infant tolerated delivery well and are resting comfortably.
--- NOTE | 2022-02-19 17:07 | P.HPOB ---
History of Present Illness H&P Date: 02/19/22 Chief Complaint: IUP at 38 and 6/7 weeks, gestational hypertension 31-year-old at 38 6/7 weeks that presented to the office for routine visit, blood pressures noted to be elevated 150s over 100s 2. Patient was sent to the hospital for serial blood pressures blood pressures remained 140s to 150s over 90s to 100. Patient denies signs or symptoms of preeclampsia. Patient has been receiving routine care which has been essentially uncomplicated. Patient does have a prior history of a performed with a tubal ligation, Filshie clips this is a tubal ligation failure. She desires salpingectomy if possible. On bloodwork this patient is a blood type of B+, rubella status immune, B surface antigen negative, HIV negative, RPR is nonreactive, group beta strep cultures noted to be positive. Review of Systems Constitutional: Denies chills, Denies fatigue, Denies fever Ears, nose, mouth and throat: Denies headache Cardiovascular: Reports leg edema Respiratory: Denies dyspnea Gastrointestinal: Denies nausea, Denies vomiting Genitourinary: Reports Past Medical History Past Medical History: No Reported History Additional Past Medical History / Comment(s): states hypertension with delivery of 1st baby., -LMP November 2018. History of Any Multi-Drug Resistant Organisms: None Reported Past Surgical History: Orthopedic Surgery Additional Past Surgical History / Comment(s): D&C Past Anesthesia/Blood Transfusion Reactions: No Reported Reaction Additional Past Anesthesia/Blood Transfusion Reaction / Comment(s): states elevated bloodpressure with 1st baby Past Psychological History: Anxiety, Bipolar, Depression Smoking Status: Never smoker Past Alcohol Use History: None Reported Past Drug Use History: None Reported Additional Drug Use History / Comment(s): No current marijuana - Past Family History Father Family Medical History: No Reported History Medications and Allergies Home Medications Medication Instructions Recorded Confirmed Type Pnv No.95/Ferrous Fum/Folic AC 1 tab PO DAILY 09/14/19 02/19/22 History [ Multivitamin Tablet] Allergies Allergy/AdvReac Type Severity Reaction Status Date / Time No Known Allergies Allergy Verified 02/19/22 11:44 Exam Osteopathic Statement: *. No significant issues noted on an osteopathic structural exam other than those noted in the History and Physical/Consult. Vital Signs Temp Pulse Resp BP Pulse Ox 02/19/22 11:44 96.9 F L 83 16 156/82 95 Intake and Output 02/19/22 02/19/22 02/19/22 06:59 14:59 22:59 Intake Total 1000 Balance 1000 Intake: IV 1000 Other: Weight 95.708 kg Targeted physical exam is performed this date in general this a well-nourished well-developed -[place] female in no acute distress, breathing is noted to nonlabored, heart has regular rate and rhythm, abdomen is gravid cervical exam per RN is 1 thick high heart tones are noted to be category 1. Results Result Diagrams: 02/19/22 11:57 02/19/22 11:57 Abnormal Lab Results - Last 24 Hours (Table) 02/19/22 02/19/22 02/19/22 Range/Units 11:57 11:57 11:57 Hgb 9.9 L (11.4-16.0) gm/dL Hct 32.7 L (34.0-46.0) % MCV 76.0 L (80.0-100.0) fL MCH 23.1 L (25.0-35.0) pg MCHC 30.4 L (31.0-37.0) g/dL RDW 16.7 H (11.5-15.5) % Fibrinogen 605 H (200-500) mg/dL BUN (7-17) mg/dL Urine Appearance Cloudy H (Clear) Urine Protein Trace H (Negative) Ur Squamous Epith Cells 11 H (0-4) /hpf Urine Mucus Occasional H (None) /hpf U Marijuana (THC) Screen (NotDetected) 02/19/22 02/19/22 Range/Units 11:57 11:57 Hgb (11.4-16.0) gm/dL Hct (34.0-46.0) % MCV (80.0-100.0) fL MCH (25.0-35.0) pg MCHC (31.0-37.0) g/dL RDW (11.5-15.5) % Fibrinogen (200-500) mg/dL BUN 5 L (7-17) mg/dL Urine Appearance (Clear) Urine Protein (Negative) Ur Squamous Epith Cells (0-4) /hpf Urine Mucus (None) /hpf U Marijuana (THC) Screen Detected H (NotDetected) Assessment and Plan (1) Family planning Current Visit: No Status: Acute Code(s): Z30.09 - ENCOUNTER FOR OTH GENERAL CNSL AND ADVICE ON CONTRACEPTION SNOMED Code(s): 469116939 (2) H/O section Current Visit: No Status: Acute Code(s): Z98.891 - HISTORY OF UTERINE SCAR FROM PREVIOUS SURGERY SNOMED Code(s): 298624225 (3) Hypertension complicating Current Visit: No Status: Acute Code(s): O16.9 - UNSPECIFIED MATERNAL HYP ERTENSION, UNSPECIFIED TRIMESTER SNOMED Code(s): 89164395209368 (4) Term Current Visit: No Status: Acute Code(s): Z34.80 - ENCOUNTER FOR SUPRVSN OF NORMAL , UNSP TRIMESTER SNOMED Code(s): 29976883 Plan: 31-year-old 012 at 38-6/7 weeks that presents to the hospital for repeat section with salpingectomy secondary to gestational hypertension and history of 2. Patient is counseled on and tubal ligation. Patient states understanding and all questions are answered. We'll proceed to operating suite for repeat section with bilateral salpingectomy.
[2022-02-19] MEDS ORDERED: MORPHINE SULFATE 2 MG/ML SYRINGE IVP PRN (17:26)
[2022-02-19] MEDS ORDERED: LABETALOL 200 MG TAB PO STA (20:35)
[2022-02-19] MEDS: SENNOSIDES-DOCUSATE SODIUM 1 EACH TAB PO SCH (20:44)
[2022-02-19] MEDS: ACETAMINOPHEN TAB 500 MG TAB PO SCH (22:35)
[2022-02-19] MEDS: IBUPROFEN 600 MG TAB PO SCH (23:02)
[2022-02-19] MEDS: IBUPROFEN IV 800 MG in SODIUM CHLORIDE 0.9% 250 ML IV SCH (23:04)
[2022-02-20] MEDS: LACTATED RINGERS 1,000 ML IV SCH ×3 (01:37→20:08)
[2022-02-20] MEDS: ACETAMINOPHEN TAB 500 MG TAB PO SCH ×4 (01:55→22:23)
[2022-02-20] MEDS: IBUPROFEN 600 MG TAB PO SCH ×4 (05:28→23:20)
[2022-02-20] MEDS: IBUPROFEN IV 800 MG in SODIUM CHLORIDE 0.9% 250 ML IV SCH (05:37)
[2022-02-20 06:20] LABS: Anisocytosis Slight; Basophils % (A) 0 %; Eosinophils # (A) 0.1 k/uL (0-0.7); Eosinophils % (A) 0 %; HCT 26.3 % (34.0-46.0); Hypochromasia Marked; Lymphocytes # (A) 1.1 k/uL (1.0-4.8); Lymphocytes % (A) 7 %; MCH 23.1 pg (25.0-35.0); MCHC 30.2 g/dL (31.0-37.0); MCV 76.3 fL (80.0-100.0); Mean Platelet Volume 9.4; Microcytosis Slight; Monocytes # (A) 0.8 k/uL (0-1.0); Monocytes % (A) 5 %; Neutrophils # (A) 14.3 k/uL (1.3-7.7); Neutrophils % (A) 87 %; Platelet Count 184 k/uL (150-450); RBC 3.45 m/uL (3.80-5.40); RDW 16.3 % (11.5-15.5); WBC 16.4 k/uL (3.8-10.6)
[2022-02-20 06:57] LABS: HGB 7.9 gm/dL (11.4-16.0)
--- NOTE | 2022-02-20 08:07 | P.PNOBGPC ---
Subjective - Subjective Principal diagnosis: Postop day 1, repeat with bilateral salpingectomy Interval history: Patient is doing well postoperatively. She is ambulating and voiding without difficulty. States her pain is well-controlled. She denies concerns this morning. Her lochia is minimal. She did have an elevated blood pressure overnight and received labetalol 200 mg orally. Patient reports: Reports appetite normal, Reports voiding normally, Reports pain well controlled, Reports ambulating normally : doing well Objective - Vital Signs Latest vital signs: Vital Signs Temp Pulse Resp BP Pulse Ox 02/20/22 05:36 18 96 02/20/22 04:30 98.3 F 78 16 127/78 97 02/20/22 02:00 18 99 02/20/22 00:30 95.4 F L 77 14 130/81 98 02/19/22 22:09 99 02/19/22 22:00 18 02/19/22 21:53 82 139/89 99 02/19/22 20:26 18 02/19/22 20:15 96.4 F L 72 16 163/87 99 02/19/22 19:00 97.9 F 68 16 168/97 99 02/19/22 18:30 59 L 16 150/77 100 02/19/22 18:00 64 16 146/85 100 02/19/22 17:45 53 L 16 153/82 100 02/19/22 17:30 68 16 145/69 99 02/19/22 17:15 71 16 131/66 100 02/19/22 17:00 95.9 F L 83 16 124/58 100 02/19/22 11:44 96.9 F L 83 16 156/82 95 Intake and Output 02/19/22 02/20/22 02/20/22 22:59 06:59 14:59 Intake Total 500 Output Total 863 1250 Balance -363 -1250 Intake: IV 500 Output: Urine 370 1250 Uretheral (Gleason) 550 Emesis 200 Estimated Blood Loss 113 Output, Quantitative 180 Blood Loss Other: Voiding Method Toilet - Exam Extremities: Present: normal, edema Abdomen: Present: normal appearance, soft Incision: Present: normal, dry Uterus: Present: normal, firm - Labs Labs: Abnormal Lab Results - Last 24 Hours (Table) 06/09/22 06/09/22 06/09/22 Range/Units 11:57 11:57 11:57 WBC (3.8-10.6) k/uL RBC (3.80-5.40) m/uL Hgb 9.9 L (11.4-16.0) gm/dL Hct 32.7 L (34.0-46.0) % MCV 76.0 L (80.0-100.0) fL MCH 23.1 L (25.0-35.0) pg MCHC 30.4 L (31.0-37.0) g/dL RDW 16.7 H (11.5-15.5) % Neutrophils # (1.3-7.7) k/uL Fibrinogen 605 H (200-500) mg/dL BUN (7-17) mg/dL Urine Appearance Cloudy H (Clear) Urine Protein Trace H (Negative) Ur Squamous Epith Cells 11 H (0-4) /hpf Urine Mucus Occasional H (None) /hpf U Marijuana (THC) Screen (NotDetected) 02/19/22 02/19/22 02/20/22 Range/Units 11:57 11:57 06:05 WBC 16.4 H (3.8-10.6) k/uL RBC 3.45 L (3.80-5.40) m/uL Hgb 7.9 L D (11.4-16.0) gm/dL Hct 26.3 L (34.0-46.0) % MCV 76.3 L (80.0-100.0) fL MCH 23.1 L (25.0-35.0) pg MCHC 30.2 L (31.0-37.0) g/dL RDW 16.3 H (11.5-15.5) % Neutrophils # 14.3 H (1.3-7.7) k/uL Fibrinogen (200-500) mg/dL BUN 5 L (7-17) mg/dL Urine Appearance (Clear) Urine Protein (Negative) Ur Squamous Epith Cells (0-4) /hpf Urine Mucus (None) /hpf U Marijuana (THC) Screen Detected H (NotDetected) Assessment and Plan (1) Family planning Current Visit: No Status: Acute Code(s): Z30.09 - ENCOUNTER FOR OTH GENERAL CNSL AND ADVICE ON CONTRACEPTION SNOMED Code(s): 612326193 (2) H/O section Current Visit: No Status: Acute Code(s): Z98.891 - HISTORY OF UTERINE SCAR FROM PREVIOUS SURGERY SNOMED Code(s): 585294388 (3) Hypertension complicating Current Visit: No Status: Acute Code(s): O16.9 - UNSPECIFIED MATERNAL HYPERTENSION, UNSPECIFIED TRIMESTER SNOMED Code(s): 58088083953965 (4) Term Current Visit: No Status: Acute Code(s): Z34.80 - ENCOUNTER FOR SUPRVSN OF NORMAL , UNSP TRIMESTER SNOMED Code(s): 38141263 (5) S/P section Current Visit: No Status: Acute Code(s): Z98.891 - HISTORY OF UTERINE SCAR FROM PREVIOUS SURGERY SNOMED Code(s): 989167843 (6) Acute blood loss anemia Current Visit: Yes Status: Acute Code(s): D62 - ACUTE POSTHEMORRHAGIC ANEMIA SNOMED Code(s): 280194517 Plan: 31-year-old G3 now P3 status post repeat with bilateral salpingectomy. Patient is doing well postoperatively. We'll continue to monitor blood pressures and treat as indicated. Patient was anemic prior to surgery with a hemoglobin of 9.9, postoperative hemoglobin noted to be 7.9. We will monitor for symptoms. Patient is a symptomatically currently. We'll recommend iron treatment post .
[2022-02-20] MEDS: SENNOSIDES-DOCUSATE SODIUM 1 EACH TAB PO SCH ×2 (08:16→19:52)
--- NOTE | 2022-02-20 11:43 | P.PN ---
Progress Note - Text Progress Note Date: 02/20/22 (2491) Anesthesia Postop day 1 Subjective: Status Post section with Duramorph. Patient seen and examined. Doing well without complaint. VAS 5 out of 10. No nausea or vomiting. Mild pruritus tolerable.. . Gross lower extremity strength intact. Spinal site intact without induration. Without apparent anesthetic complications. Objective: Vital signs reviewed Heart: Regular Rate Lungs: Good chest excursion Abdomen: Appears nondistended Assessment: Status post with Duramorph postop day 1 Plan: Continue current care with your medical management. Anticipated and the Duramorph around 6 PM tonight, you may see increased pain needs around this time.
[2022-02-20] MEDS ORDERED: FERROUS SULFATE 325 MG TAB PO SCH (17:30)
[2022-02-20 17:43] VITALS: RESP 16
[2022-02-21] MEDS: ACETAMINOPHEN TAB 500 MG TAB PO SCH ×2 (04:33→09:12)
[2022-02-21] MEDS: IBUPROFEN 600 MG TAB PO SCH (06:06)
[2022-02-21 08:37] VITALS: PULSE 76; TEMP 98.1
--- NOTE | 2022-02-21 09:42 | P.DS ---
Providers Date of admission: 02/19/22 11:16 Expected date of discharge: 02/21/22 Attending physician: Estela Wang Primary care physician: Stated None Hospital Course: This is a 31-year-old female 4 para 2012 EDC 02/27/2022 at 38-6/7 weeks' gestation who presents from the office with elevated blood pressures. Plan was for section next week, however Dr. Bradford elected to perform her section on 02/19/2022. Please see admitting history and physical for details. Her pressure on admission 156/82. Patient underwent a repeat section giving to a liveborn male infant with scores of 9 and 9 at one and 5 minutes respectively. He weighed 7 lbs. 10 oz. or 3630 g. Surgery went well, please see dictated operative note for details. This morning the patient is doing well. She denies headache, visual changes, right upper quadrant pain. Pain is well managed with Motrin products. Her blood pressures however are variable, 160s to 130s over 80s to 90s. For that reason I began with a low 100 mg twice a day this morning. I have given her prescription to continue the labetalol at home, 100 mg twice daily. I've asked her to call with any fevers shakes or chills, foul smelling or copious lochia, with the passage of large blood clots, with any pain not alleviated by [id number] products. She will call with any headache, visual changes, right upper quadrant pain. She will continue taking her vitamin daily. No driving, no intercourse, no heavy lifting. Follow-up in the office with primary physician in 2 weeks. circumcision has been performed and patient will follow-up with inspector as recommended Assessment: Doing well second postoperative day Patient Condition at Discharge: Good Plan - Discharge Summary Discharge Rx Participant: No New Discharge Prescriptions: No Action Pnv No.95/Ferrous Fum/Folic AC [ Multivitamin Tablet] 1 tab PO DAILY Discharge Medication List Pnv No.95/Ferrous Fum/Folic AC [ Multivitamin Tablet] 1 tab PO DAILY 09/14/19 [History] Follow up Appointment(s)/Referral(s): Estela Wang DO [Doctor of Osteopathic Medicine] - 2 Weeks Discharge Disposition: HOME SELF-CARE
[2022-02-21] MEDS ORDERED: LABETALOL 100 MG TAB PO SCH (09:45)
[2022-02-21 12:35] VITALS: BP 138/86
== END 2022-02-21 11:45 | disposition home or self-care (01) | DRG 784 ==
LOC: 4FBP 11:16
PROVIDERS: ADMIT Obstetrics & Gynecology Obstetrics; ATTEND Obstetrics & Gynecology Obstetrics
PROC: 0UB70ZZ Excision of Bilateral Fallopian Tubes, Open Approach (ICD-10-PCS; 2022-02-19)
PROC: 10D00Z1 Extraction of Products of Conception, Low, Open Approach (ICD-10-PCS; principal; 2022-02-19 16:00)
DX: O13.4 Gestational [pregnancy-induced] hypertension without significant proteinuria, complicating childbirth (principal); D62 Acute posthemorrhagic anemia; O34.211 Maternal care for low transverse scar from previous cesarean delivery; F31.9 Bipolar disorder, unspecified; F41.9 Anxiety disorder, unspecified; L29.9 Pruritus, unspecified; O99.344 Other mental disorders complicating childbirth; Z30.2 Encounter for sterilization; Z37.0 Single live birth; Z3A.38 38 weeks gestation of pregnancy
CPT/HCPCS: 80306; 81001; 82565; 82570; 83615; 84156; 84450; 84460; 84520; 84550; 85025; 85384; 85610; 85730; 86850; 86900; 86901